=== PATIENT | male | born 1945 | race Caucasian/White ===

== ENCOUNTER 2019-12-31 11:56 | Emergency (ER) | payer BC, MEDICARE ==
[2019-12-31 12:08] VITALS: BP 157/66
--- NOTE | 2019-12-31 12:17 | ER Document Report ---
HPI - HPI Time Seen by Provider: 12/31/19 12:09 Pain Level: 3 Context: Patient is a 74-year-old male who presents emergency department with a chief complaint of possible spider bites to his right anterior thigh. Patient states that they were there about a week ago. Patient states that it has been draining purulent drainage. Denies any fevers, body aches, or chills. He has not seen a primary care provider for this issue. He is visiting from [place]. - ROS Systems Reviewed and Negative: Yes All other systems reviewed and negative - CONSTITUTIONAL Constitutional: DENIES: Fever, Chills - DERM Skin Problems: Pustule - Multiple to right anterior thigh Past Medical History - General Information source: Patient - Social History Smoking Status: Never Smoker Chew tobacco use (# tins/day): No Frequency of alcohol use: None Drug Abuse: None Family History: Reviewed & Not Pertinent - Past Medical History Cardiac Medical History: Reports: Hx Hypertension Endocrine Medical History: Reports: Hx Diabetes Mellitus Type 2 Vertical Provider Document - CONSTITUTIONAL Agree With Documented VS: Yes Exam Limitations: No Limitations General Appearance: No Apparent Distress - HEENT HEENT: Atraumatic, Normocephalic, PERRLA - CARDIOVASCULAR Cardiovascular: Regular Rate, Regular Rhythm Pulses: Normal: Radial - MUSCULOSKELETAL/EXTREMETIES Musculoskeletal/Extremeties: FROM - NEURO Level of Consciousness: Awake, Alert, Appropriate Motor/Sensory: No Motor Deficit, No Sensory Deficit - DERM Integumentary: Abscess - Multiple already drained to right anterior thigh Course - Re-evaluation Re-evalutation: 12/31/19 12:22 Patient presents with symptoms most consistent with an acute cellulitis related to his spider bite. Vitals within normal limits. Patient does not meet sepsis criteria is overall very well in appearance. Exam and history are not consistent with DVT. Patient will be started on coverage for both staph and strep. Since the abscesses have already drained, will place the patient on antibiotics. At this time will discharge with return precautions and follow-up recommendations. Verbal discharge instructions given a the bedside and opportunity for questions given. Medication warnings reviewed. Patient is in agreement with this plan and has verbalized understanding of return precautions. - Vital Signs Vital signs: Temp Pulse Resp BP Pulse Ox 97.6 F 85 18 157/66 H 96 12/31/19 12:07 12/31/19 12:07 12/31/19 12:07 12/31/19 12:07 12/31/19 12:07 Discharge - Discharge Clinical Impression: Spider bite Qualifiers: Encounter type: initial encounter Injury intent: accidental or unintentional Qualified Code(s): T63.301A - Toxic effect of unspecified spider venom, accidental (unintentional), initial encounter Cellulitis Qualifiers: Site of cellulitis: extremity Site of cellulitis of extremity: lower extremity Laterality: right Qualified Code(s): L03.115 - Cellulitis of right lower limb Condition: Stable Disposition: HOME, SELF-CARE Additional Instructions: The rash is likely due to infection of your skin. You need to take the antibiotics as prescribed. Do not stop even if the rash goes away until you have completed all the antibiotics. The area of redness was traced out here in the emergency department with a marking pen. You need to return to emergency department if the redness spreads outside of this area by more than 2 cm in any direction. You should also return if you develop fevers with temperature greater than 101, persistent vomiting, worsening pain, or have any other symptoms that are concerning to you. Prescriptions: Doxycycline Hyclate 100 mg PO BID #14 tablet.
== END 2019-12-31 12:20 | disposition home or self-care (01) ==
LOC: ER 11:56
DX: T63.301A Toxic effect of unspecified spider venom, accidental (unintentional), initial encounter (principal); L03.115 Cellulitis of right lower limb; E11.9 Type 2 diabetes mellitus without complications; I10 Essential (primary) hypertension
CPT/HCPCS: 99283

== ENCOUNTER 2020-01-06 12:45 | Emergency (ER) | payer MEDICARE ==
[2020-01-06] MEDS ORDERED: RINGERS LACTATED IV ONE (13:48)
--- NOTE | 2020-01-06 13:55 | ER Document Report ---
ED General - General Chief Complaint: Fever Stated Complaint: FEVER, WEAKNESS Time Seen by Provider: 01/06/20 13:14 - HPI Notes: Patient is a 74-year-old male presents to the emergency department for evaluation of cough, fever, weakness. He has been sick for last several days. He is actually been so weak he is been unable to get out of the bed in time to urinate. He states he was incontinent 3 times. He denies any pain. He states to me he thinks his cough is getting better. He denies any real shortness of breath. He has no nausea or vomiting. He states he is eating and drinking normally. Normal bowel movements. He denies any anosmia or difficulty with taste. He is here from [place], visiting his son who is retired from the . He was actually seen for this recently. He cannot tell me what sort of treatment was enacted. Otherwise, the patient states he has been taking his home medications as prescribed, the exception of his insulin, which he did not take today. - Related Data Allergies/Adverse Reactions: No Known Allergies Allergy (Verified 01/06/20 13:47) Past Medical History - General Information source: Patient - Social History Smoking Status: Never Smoker Frequency of alcohol use: None Drug Abuse: None Family History: Reviewed & Not Pertinent - Past Medical History Cardiac Medical History: Reports: Hx Hypertension Endocrine Medical History: Reports: Hx Diabetes Mellitus Type 2 Malignancy Medical History: Reports Hx Leukemia, Reports Hx Prostate Cancer Review of Systems - Review of Systems Constitutional: See HPI EENT: No symptoms reported Cardiovascular: No symptoms reported Respiratory: See HPI Gastrointestinal: No symptoms reported Genitourinary: See HPI Musculoskeletal: No symptoms reported Skin: No symptoms reported Neurological/Psychological: No symptoms reported Physical Exam - Vital signs Vitals: Temp Resp BP Pulse Ox 98.8 F 26 H 129/74 H 91 L 01/06/20 13:04 01/06/20 13:04 01/06/20 13:04 01/06/20 13:04 - Notes Notes: This is a very pleasant 74-year-old male, who appears his stated age, in a mild amount of distress. He is mildly tachypneic, but otherwise shows no other signs of increased work of breathing. He is pleasant and cooperative, but sometimes slow to answer questions. Vital signs reviewed, please refer to chart. Head is normocephalic, atraumatic. Pupils equal round, reactive to light. Neck is supple without meningismus. Heart is regular rate and rhythm. Lungs reveal occasional expiratory wheezes. Abdomen is soft, nontender, normoactive bowel sounds throughout. Extremities without cyanosis, clubbing. Posterior calves are nontender. Peripheral pulses are equal. Skin is warm and dry. Patient is awake, alert, neurological exam is nonfocal. Course - Re-evaluation Re-evalutation: 01/06/20 13:52 Patient presents to the emergency department for evaluation. He was initially seen to be hypoxic at 89% on room air, was placed on 2 L of oxygen. He is placed on a alarm security or surveillance monitor and IV was established. We will initiate sepsis work-up. IV fluids and blood work are ordered. Chest x-ray ordered, patient notified of the need to provide a urine sample. He is currently stable, heart rate mildly elevated at 106, blood pressure stable at 129/74. We will continue to monitor. 01/06/20 16:09 At this time, CBC has finally resulted. He has a markedly leukocytosis. He does have a history of leukemia, but per the patient has been in remission for several years. Certainly this could be sepsis related. His chest x-ray is unremarkable per radiology, despite his borderline oxygenation. He does have large blood in his urine, as well as some incontinence. I will go ahead and treat him for cystitis. IV Rocephin ordered. Will contact medicine for admiss ion. 01/06/20 16:[address] Benoit hospitalist. He asked that labs be ordered, the doctor, Garrison miller be consulted. I spoke with Dr. Berger. We discussed this patient's lab work. He states he is concerned about the possibility of blasts on a peripheral smear. He is going to try and contact pathology to see if it can be evaluated now. He will contact me with further details. 01/06/20 17:47 I have not yet heard back from oncology, but the hospitalist did contact me, he will admit the patient for further care. 01/06/20 18:01 I spoke again with the oncologist. He contacted me, notified me that the pathology report did in fact include blasts on peripheral smear. This is very concerning for an acute leukemia. Recommendation was transfer to [facility] by Dr. Jayaram. 30 I spoke directly to the patient regarding this. He unfortunately is not able to give me much more in the way of history in regards to his prior leukemia. I spoke with Erna, the patient's [id number], she was also with her , the patient's son. We talked at length about findings, our concerns, and the indication for transfer to [facility]. They voiced understanding. Patient's [id number] does state that records regarding his primary care provider and oncologist in [place] may be in fact in the patient's wallet. She recommends that we look, I did notify nursing. Otherwise, I will contact [facility] to facilitate transfer of this patient. Patient has had intermittent confusion. He is having difficulty remembering to push the call light. He has been incontinent multiple times. I have had to go back into the room, redirect him, place him back on the monitor multiple times. 01/06/20 19:[address] Donato, hematology oncology fellow on-call at [facility]. We talked at length about findings. Of course he is concerned about the COVID possibility, as [place]. We unfortunately do have a shortage of rapid tests, I am unsure as to whether or not I am able to facilitate this rapid test right now. He will discuss this case with his attending. I also kept our oncologist up-to-date in regards to the possible transfer of this patient. Patient remains mildly hyperglycemic despite IV fluids. He is eating. I did cover him with insulin. He is currently stable. 01/06/20 20:04 I was contacted by the offensive coordinator Alok from [facility], at 2000 hrs. He reports to me that the patient will be accepted by Dr. Tania Ledesma, on the hospitalist COVID-19 team. He does, however, remark that the board will have to approve this patient's transfer. He will be in contact. 01/06/20 21:47 I was notified by ED elementary principal that the patient does not fact have a bed assignment. Patient will be transferred to [facility]. 01/06/20 21:48 01/06/20 21:55 We were able to locate patient's healthcare providers back in [place]. Patient sees [facility] in [facility], PRABHA Geller, amaya lafleur and oncologist at [facility] [place], Wayne Beard MD, a radiation oncologist. 01/06/20 22:43 Patient remains a stable, awaiting transport to [facility]. - Vital Signs Vital signs: Temp Pulse Resp BP Pulse Ox 99.0 F 26 H 156/79 H 92 01/06/20 21:01 01/06/20 21:01 01/06/20 21:01 01/06/20 21:01 - Laboratory Result Diagrams: 01/06/20 13:10 01/06/20 13:10 Laboratory results interpreted by me: 01/06/20 01/06/20 01/06/20 13:10 13:10 13:10 WBC 50.5 H* RDW 14.9 H Seg Neuts % (Manual) 13 L Band Neutrophils % 1 L Lymphocytes % (Manual) 79 H Monocytes % (Manual) 1 L Immature Leukocytes % 6 H Abs Lymphs (Manual) 39.9 H VBG pH 7.43 H VBG pCO2 29.3 L VBG HCO3 19.0 L Sodium 129.1 L Chloride 94 L Carbon Dioxide 21 L BUN 21 H Est GFR (MDRD) Non-Af 58 L Glucose 359 H POC Glucose Lactic Acid Direct Bilirubin 0.5 H Urine Glucose (UA) Urine Blood 01/06/20 01/06/20 01/06/20 13:10 13:55 17:17 WBC RDW Seg Neuts % (Manual) Band Neutrophils % Lymphocytes % (Manual) Monocytes % (Manual) Immature Leukocytes % Abs Lymphs (Manual) VBG pH VBG pCO2 VBG HCO3 Sodium Chloride Carbon Dioxide BUN Est GFR (MDRD) Non-Af Glucose POC Glucose Lactic Acid 2.4 H 2.6 H Direct Bilirubin Urine Glucose (UA) >=500 H Urine Blood LARGE H 01/06/20 01/06/20 18:46 19:20 WBC RDW Seg Neuts % (Manual) Band Neutrophils % Lymphocytes % (Manual) Monocytes % (Manual) Immature Leukocytes % Abs Lymphs (Manual) VBG pH VBG pCO2 VBG HCO3 Sodium Chloride Carbon Dioxide BUN Est GFR (MDRD) Non-Af Glucose POC Glucose 258 H Lactic Acid 2.4 H Direct Bilirubin Urine Glucose (UA) Urine Blood - Diagnostic Test Radiology reviewed: Reports reviewed Radiology results interpreted by me: 01/06/20 17:47 Chest X-Ray 01/06/20 13:48 IMPRESSION: NO ACUTE RADIOGRAPHIC FINDING IN THE CHEST. - EKG Interpretation by Me Additional EKG results interpreted by me: 01/06/20 13:53 Sinus mechanism with a rate of 94 bpm. Normal axis. Borderline prolonged QT interval. No acute ST changes concerning for ischemia or infarction. No old studies available for comparison. 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 Tania Ledesma
[2020-01-06 14:25] LABS: APPEARANCE,URINE CLEAR; BILIRUBIN,URINE NEGATIVE (NEGATIVE); COLOR,URINE YELLOW; GLUCOSE, URINE >=500 mg/dL (NEGATIVE); KETONES,URINE NEGATIVE (NEGATIVE); PROTEIN,URINE NEGATIVE (NEGATIVE); URINE SPECIFIC GRAVITY 1.026; UROBILINOGEN,URINE NEGATIVE mg/dL (<2.0)
--- NOTE | 2020-01-06 15:03 | RADIOLOGY REPORT (SQ) ---
EXAM DESCRIPTION: CHEST SINGLE VIEW IMAGES COMPLETED DATE/TIME: 01/06/2020 2:32 pm REASON FOR STUDY: Cough, hypoxia COMPARISON: None. EXAM PARAMETERS: NUMBER OF VIEWS: One view. TECHNIQUE: Single frontal radiographic view of the chest acquired. RADIATION DOSE: NA LIMITATIONS: None. FINDINGS: LUNGS AND PLEURA: No opacities, masses or pneumothorax. No pleural effusion. MEDIASTINUM AND HILAR STRUCTURES: No masses. Contour normal. HEART AND VASCULAR STRUCTURES: Heart normal in size. Normal vasculature. BONES: No acute findings. HARDWARE: None in the chest. OTHER: No other significant finding. IMPRESSION: NO ACUTE RADIOGRAPHIC FINDING IN THE CHEST. TECHNICAL DOCUMENTATION: JOB ID: [id number] 2010 [employer]- All Rights Reserved Reading location - IP/workstation name: [email or web address]
[2020-01-06 15:09] LABS: VENOUS BLOOD BASE EXCESS -3.7 mmol/L; VENOUS BLOOD PCO2 29.3 mmHg (35-63); VENOUS BLOOD PH 7.43 (7.30-7.42)
[2020-01-06 15:15] LABS: INTERNATIONAL RATION (INR) 1.04; PROTHROMBIN TIME 13.8 SEC (11.4-15.4)
[2020-01-06 15:18] LABS: HEMATOCRIT 47.2 % (37.9-51.0); HEMOGLOBIN 16.2 g/dL (13.5-17.0); MEAN CORPUSCULAR HEMOGLOBIN 29.7 pg (27.0-33.4); MEAN CORPUSCULAR HGB CONC 34.4 g/dL (32.0-36.0); MEAN CORPUSCULAR VOLUME 86 fl (80-97); PLATELET COUNT 190 10^3/uL (150-450); RED BLOOD COUNT 5.47 10^6/uL (4.35-5.55); RED CELL DISTRIBUTION WIDTH 14.9 % (11.5-14.0)
[2020-01-06 15:22] LABS: ALKALINE PHOSPHATASE 41 U/L (38-126); ANION GAP 14 (5-19); ASPARTATE AMINO TRANSFERASE 22 U/L (17-59); BILIRUBIN,DIRECT 0.5 mg/dL (0.0-0.4); BILIRUBIN,TOTAL 1.2 mg/dL (0.2-1.3); BLOOD UREA NITROGEN 21 mg/dL (7-20); CALCIUM 9.4 mg/dL (8.4-10.2); CARBON DIOXIDE 21 mmol/L (22-30); CHLORIDE 94 mmol/L (98-107); GLUCOSE 359 mg/dL (75-110); POTASSIUM 4.3 mmol/L (3.6-5.0); TOTAL PROTEIN 6.3 g/dL (6.3-8.2)
[2020-01-06 15:56] LABS: WHITE BLOOD COUNT 50.5 10^3/uL (4.0-10.5)
[2020-01-06 15:59] LABS: BASOPHILS % (MANUAL) 0 % (0-2); SEGMENTED NEUTROPHILS % (MAN) 13 % (42-78); TOTAL CELLS COUNTED 100
[2020-01-06 16:01] LABS: ANISOCYTOSIS SLIGHT; PLATELET COMMENT ADEQUATE; POLYCHROMASIA SLIGHT; SMUDGE CELLS PRESENT
[2020-01-06] MEDS ORDERED: CEFTRIAXONE 1 GM/D5W RTU 1 GM/50 ML RTUPB IV ONE (16:08)
[2020-01-06 16:52] LABS: PHOSPHORUS 3.7 mg/dL (2.5-4.5)
--- NOTE | 2020-01-06 18:00 | PDOC H&P ---
History of Present Illness Patient complains of: confusion, weakness, fever, cough History of Present Illness: FARIDEH OCHOA is a 74 year old male with h/o Leukemia (could not specify) reported to have been in remission, prostate cancer s/p radiation 2 years ago, diabetes mellitus type 2, hypertension, who presents to the hospital for evaluation of fever, confusion and incontinence. Patient is based in [place]. He just traveled into town about a week ago. He has been experiencing a cough as well as a fever of 101.4F which was measured by his [id number] at home. His was also noted to be febrile. He had been seen in the ER a few days ago for evaluation of an area of redness secondary to a spider bite. He was sent home on doxycycline at the time. Started having fevers at home and became weak having difficulty standing up this morning. Also had an episode of incontinence. Denies saddle anesthesia. His white cell count was noted to be over 50,000 in the ER. He was also noted to be hypoxic at 88% in the ER. She obtained from patient, patient's and patient's [id number] Erna. Past Medical History Cardiac Medical History: Reports: Hypertension Endocrine Medical History: Reports: Diabetes Mellitus Type 2 Malignancy Medical History: Reports: Leukemia Past Surgical History Past Surgical History: Reports: Other Social History Smoking Status: Never Smoker Frequency of Alcohol Use: None Hx Recreational Drug Use: No - Advance Directive Resuscitation Status: Full Code Family History Family History: DM, Hypertension Parental Family History Reviewed: Yes Children Family History Reviewed: Unknown Sibling(s) Family History Reviewed.: Unknown Medication/Allergy Home Medications: Doxycycline Hyclate 100 mg PO BID #14 tablet. 12/31/19 Allergies/Adverse Reactions: No Known Allergies Allergy (Verified 01/06/20 13:47) Review of Systems Constitutional: PRESENT: fatigue, fever(s) Eyes: ABSENT: visual disturbances Ears: ABSENT: hearing changes Nose, Mouth, and Throat: ABSENT: headache(s) Cardiovascular: ABSENT: chest pain Respiratory: PRESENT: cough. ABSENT: dyspnea Gastrointestinal: ABSENT: abdominal pain, nausea, vomiting Genitourinary: PRESENT: other - incontinence. ABSENT: dysuria Integumentary: PRESENT: diaphoresis Neurological: PRESENT: confusion. ABSENT: dizziness Psychiatric: ABSENT: depression Physical Exam Vital Signs: Temp Pulse Resp BP Pulse Ox 98.8 F 26 H 129/74 H 96 01/06/20 13:04 01/06/20 13:04 01/06/20 13:04 01/06/20 14:04 Intake & Output 01/05/20 01/06/20 01/07/20 06:59 06:59 06:59 Output Total 500 Balance -500 Weight 115.666 kg General appearance: PRESENT: no acute distress, cooperative Head exam: PRESENT: normocephalic Eye exam: ABSENT: scleral icterus Neck exam: ABSENT: JVD, meningismus, tracheal deviation Respiratory exam: PRESENT: symmetrical, unlabored, wheezes. ABSENT: accessory muscle use, retraction, tachypnea Cardiovascular exam: PRESENT: RRR, +S1, +S2. ABSENT: tachycardia GI/Abdominal exam: PRESENT: soft. ABSENT: rebound, rigid, tenderness Extremities exam: ABSENT: calf tenderness, pedal edema Neurological exam: PRESENT: alert, awake, oriented to person, oriented to place, oriented to time, other - memory lapses, forgetful Psychiatric exam: PRESENT: anxious. ABSENT: agitated Focused psych exam: ABSENT: internal stimuli, restlessness Results Laboratory Results: 01/06/20 13:10 01/06/20 13:10 01/06/20 01/06/20 01/06/20 13:10 13:10 13:10 WBC 50.5 H* RBC 5.47 Hgb 16.2 Hct 47.2 MCV 86 MCH 29.7 MCHC 34.4 RDW 14.9 H Plt Count 190 Seg Neutrophils % Not Reportable VBG pH 7.43 H VBG pCO2 29.3 L VBG HCO3 19.0 L VBG Base Excess -3.7 Sodium 129.1 L Potassium 4.3 Chloride 94 L Carbon Dioxide 21 L Anion Gap 14 BUN 21 H Creatinine 1.22 Est GFR ( Amer) > 60 Glucose 359 H Lactic Acid Uric Acid Calcium 9.4 Phosphorus Total Bilirubin 1.2 AST 22 Alkaline Phosphatase 41 Total Protein 6.3 Albumin 4.0 Urine Color Urine Appearance Urine pH Ur Specific Colo Urine Protein Urine Glucose (UA) Urine Ketones Urine Blood Urine RBC (Auto) 01/06/20 01/06/20 01/06/20 13:10 13:10 13:55 WBC RBC Hgb Hct MCV MCH MCHC RDW Plt Count Seg Neutrophils % VBG pH VBG pCO2 VBG HCO3 VBG Base Excess Sodium Potassium Chloride Carbon Dioxide Anion Gap BUN Creatinine Est GFR ( Amer) Glucose Lactic Acid 2.4 H Uric Acid 6.0 Calcium Phosphorus 3.7 Total Bilirubin AST Alkaline Phosphatase Total Protein Albumin Urine Color YELLOW Urine Appearance CLEAR Urine pH 5.0 Ur Specific Colo 1.026 Urine Protein NEGATIVE Urine Glucose (UA) >=500 H Urine Ketones NEGATIVE Urine Blood LARGE H Urine RBC (Auto) >182 01/06/20 13:10 Troponin I 0.021 Impressions: Chest X-Ray 01/06/20 13:48 IMPRESSION: NO ACUTE RADIOGRAPHIC FINDING IN THE CHEST. 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 Berger has contacted pathologist who reviewed slides notes presence of lymphoblasts. I have discussed with Dr. Berger who recommends that patient be transferred to tertiary facility given presence of blast as this becomes concerning for ALL (2) Fever Is this a current diagnosis for this admission?: Yes Plan: Patient's daughter in law Erna, informs me that they have all had fevers in the house and body aches with cough Possibly a viral illness. Check for COVID-19 and influenza Chest x-ray is negative for any pneumonia. (3) Hypoxia Is this a current diagnosis for this admission?: Yes Plan: 88% on room air upon presentation of denies history of COPD or asthma. In light of patient's likely malignancy, it is important to rule out PE so we will get a CTA of the chest. (4) Hyperglycemia due to type 2 diabetes mellitus Qualifiers: Diabetes mellitus custodial insulin use: with emt intermediate use Qualified Code(s): E11.65 - Type 2 diabetes mellitus with hyperglycemia; Z79.4 - terminal worker (current) use of insulin Is this a current diagnosis for this admission?: Yes Plan: Resume home regimen 70/30 65 units twice daily. Hold metformin. Accu-Cheks and sliding scale insulin. (5) Acute metabolic encephalopathy Is this a current diagnosis for this admission?: Yes Plan: Likely related to patient's acute illness and leukemia (6) Cellulitis Qualifiers: Site of cellulitis: extremity Site of cellulitis of extremity: lower extremity Laterality: right Qualified Code(s): L03.115 - Cellulitis of right lower limb Is this a current diagnosis for this admission?: Yes Plan: Patient was started on treatment for suspected spider bite cellulitis of his right thigh and has been taking doxycycline which can be continued. The area does not look significantly infected at this point a small patch of erythema is noted around it. - Plan Summary Summary: Given patient is being transferred, hospitalist team will sign off. - Time Time Spent with patient: 35 or more minutes Anticipated Discharge Disposition: Tertiary Anticipated Discharge Timeframe: within 24 hours
[2020-01-06 18:03] LABS: IMMATURE MONONUCLEAR% (MANUAL) 6 % (0)
--- NOTE | 2020-01-06 18:14 | EKG REPORT ---
SEVERITY:- BORDERLINE ECG - SINUS RHYTHM BORDERLINE PROLONGED QT INTERVAL : Confirmed by: Randy Curry MD 06-Jan-2020 18:13:15
--- NOTE | 2020-01-06 18:18 | RADIOLOGY REPORT (SQ) ---
EXAM DESCRIPTION: CTA CHEST IMAGES COMPLETED DATE/TIME: 01/06/2020 5:59 pm REASON FOR STUDY: hypoxia, eval for PE COMPARISON: None. TECHNIQUE: CT scan of the chest performed using helical scanning technique with dynamic intravenous contrast injection. Images reviewed with lung, soft tissue and bone windows. Reconstructed coronal and sagittal MPR images reviewed. Additional 3 dimensional post-processing performed to develop Maximal Intensity Projection images (FL P). All images stored on PACS. All CT scanners at this facility use dose modulation, iterative reconstruction, and/or weight based d osing when appropriate to reduce radiation dose to as low as reasonably achievable (ALARA). [facility]: Dose Right [facility]: CareDose [facility]: Dose Right [facility]: Teradose 4D [facility]: BugHerd CONTRAST TYPE AND DOSE: contrast/concentration: Isovue 350.00 mmol/ml; Total Contrast Delivered: 75. 0 ml; Total Saline Delivered: 75.0 ml Contrast bolus adequate for pulmonary arteries and aorta. RENAL FUNCTION: BUN 21 creatinine 1.22 RADIATION DOSE: CT Rad equipment meets quality standard of care and radiation dose reduction techniq ues were employed. CTDIvol: 9.9 - 36.4 mGy. DLP: 1262 mGy-cm. . LIMITATIONS: Slightly suboptimal opacification of the pulmonary arteries. FINDINGS: LUNGS AND PLEURA: There are small peripheral areas of ground-glass opacification bilateral ly. There is hazy ground-glass opacification in the lower lobes more generally. There is an [address] eural-based nodule in the left lower lobe. AORTA AND GREAT VESSELS: No aneurysm. No dissection. HEART: No pericardial effusion. Moderate to marked coronary artery calcifications. PULMONARY ARTERIES: No major or central pulmonary emboli. HILAR AND MEDIASTINAL STRUCTURES: Mild mediastinal adenopathy. HARDWARE: None in the chest. UPPER ABDOMEN: No significant findings. Limited exam. THYROID AND OTHER SOFT TISSUES: No masses. No adenopathy. BONES: No acute or significant finding. 3D MIPS: Confirm above findings. OTHER: No other significant finding. IMPRESSION: 1. No central or major pulmonary emboli. Study is slightly limited. No aortic aneurys m or dissection. 2. There is hazy ground-glass opacification bilaterally with more prominent small areas of periphera l ground-glass opacification. Cannot exclude an atypical infectious/ inflammatory process. Cannot e xclude chronic interstitial changes. Cannot exclude mild interstitial edema. 3. 8 mm pleural-based nodule in the left lower lobe. 4. Mild mediastinal adenopathy. COMMENT: Quality ID # [id number]: Final reports with documentation of one or more dose reduction techniques (e.g., Automated exposure control, adjustment of the mA and/or kV according to patient size, use of iterative reconstruction technique) TECHNICAL DOCUMENTATION: JOB ID: [id number] 2010 [employer]- All Rights Reserved Reading location - IP/workstation name: [email or web address]
[2020-01-06] MEDS ORDERED: AZITHROMYCIN INJ 500 MG VIAL IV ONE (18:21)
--- NOTE | 2020-01-06 18:25 | PDOC CONSULTATION ---
Consultation Consult Date: 01/06/20 Attending physician:: LOLITA HAUSER Provider Consulted: RANJANA ALVARADO Consult reason:: Leukocytosis, fevers, chills History of Present Illness Admission Date/PCP: ED consultation Patient complains of: Fevers, weakness History of Present Illness: FARIDEH OCHOA is a 74 year old male w/ previous h/o of prostate cancer s/p XRT 2 yrs ago, visiting his son from [place], [place], who has felt poorly x 2-3 weeks now, presents w/ fevers, chills, cough, found on CBC to have wt ct 50K, hb 16, plt 160, 80% lymphocytes. He has not had wt loss or b symptoms. I reviewed the peripheral smear w/ the pathologist and there are blasts noted on smear. CMP is unremarkable and pt/inr is normal. Past Medical History Cardiac Medical History: Reports: Hypertension Endocrine Medical History: Reports: Diabetes Mellitus Type 2 Malignancy Medical History: Reports: Other - Prostate cancer Past Surgical History Past Surgical History: Reports: Other - prostate bx Social History Information Source: Patient Smoking Status: Never Smoker Frequency of Alcohol Use: None Hx Recreational Drug Use: No - Advance Directive Resuscitation Status: Full Code Family History Family History: DM, Hypertension Parental Family History Reviewed: Yes Children Family History Reviewed: Yes Sibling(s) Family History Reviewed.: Yes Medication/Allergy Home Medications: Doxycycline Hyclate 100 mg PO BID #14 tablet. 12/31/19 Allergies/Adverse Reactions: No Known Allergies Allergy (Verified 01/06/20 13:47) Review of Systems Constitutional: PRESENT: anorexia, chills, fatigue Cardiovascular: ABSENT: chest pain, dyspnea on exertion, edema, orthropnea, palpitations Gastrointestinal: PRESENT: as per HPI Genitourinary: ABSENT: dysuria, hematuria Neurological: ABSENT: abnormal gait, abnormal speech, confusion, dizziness, focal weakness, syncope Endocrine: ABSENT: cold intolerance, heat intolerance, polydipsia, polyuria Physical Exam Vital Signs: Temp Pulse Resp BP Pulse Ox 98.8 F 18 166/74 H 91 L 01/06/20 13:04 01/06/20 17:11 01/06/20 17:10 01/06/20 17:11 Intake & Output 01/05/20 01/06/20 01/07/20 06:59 06:59 06:59 Output Total 500 Balance -500 Weight 115.666 kg General appearance: PRESENT: no acute distress, well-developed, well-nourished Head exam: PRESENT: atraumatic, normocephalic Eye exam: PRESENT: conjunctiva pink, EOMI, PERRLA. ABSENT: scleral icterus Ear exam: PRESENT: normal external ear exam Mouth exam: PRESENT: moist, tongue midline Neck exam: ABSENT: carotid bruit, JVD, lymphadenopathy, thyromegaly Respiratory exam: PRESENT: clear to auscultation koffi. ABSENT: rales, rhonchi, wheezes Cardiovascular exam: PRESENT: RRR. ABSENT: diastolic murmur, rubs, systolic murmur Pulses: PRESENT: normal dorsalis pedis pul Vascular exam: PRESENT: normal capillary refill GI/Abdominal exam: PRESENT: normal bowel sounds, soft. ABSENT: distended, guarding, mass, organolmegaly, rebound, tenderness Rectal exam: PRESENT: deferred Extremities exam: PRESENT: full ROM. ABSENT: calf tenderness, clubbing, pedal edema Neurological exam: PRESENT: alert, awake, oriented to person, oriented to place, oriented to time, oriented to situation, CN II-XII grossly intact. ABSENT: motor sensory deficit Psychiatric exam: PRESENT: appropriate affect, normal mood. ABSENT: homicidal ideation, suicidal ideation Skin exam: PRESENT: dry, intact, warm. ABSENT: cyanosis, rash Results Laboratory Results: 01/06/20 13:10 01/06/20 13:10 01/06/20 01/06/20 01/06/20 13:10 13:10 13:10 WBC 50.5 H* RBC 5.47 Hgb 16.2 Hct 47.2 MCV 86 MCH 29.7 MCHC 34.4 RDW 14.9 H Plt Count 190 Seg Neutrophils % Not Reportable VBG pH 7.43 H VBG pCO2 29.3 L VBG HCO3 19.0 L VBG Base Excess -3.7 Sodium 129.1 L Potassium 4.3 Chloride 94 L Carbon Dioxide 21 L Anion Gap 14 BUN 21 H Creatinine 1.22 Est GFR ( Amer) > 60 Glucose 359 H Lactic Acid Uric Acid Calcium 9.4 Phosphorus Total Bilirubin 1.2 AST 22 Alkaline Phosphatase 41 Total Protein 6.3 Albumin 4.0 Urine Color Urine Appearance Urine pH Ur Specific [place] Urine Protein Urine Glucose (UA) Urine Ketones Urine Blood Urine RBC (Auto) 09/30/20 09/30/20 09/30/20 13:10 13:10 13:55 WBC RBC Hgb Hct MCV MCH MCHC RDW Plt Count Seg Neutrophils % VBG pH VBG pCO2 VBG HCO3 VBG Base Excess Sodium Potassium Chloride Carbon Dioxide Anion Gap BUN Creatinine Est GFR ( Amer) Glucose Lactic Acid 2.4 H Uric Acid 6.0 Calcium Phosphorus 3.7 Total Bilirubin AST Alkaline Phosphatase Total Protein Albumin Urine Color YELLOW Urine Appearance CLEAR Urine pH 5.0 Ur Specific [place] 1.026 Urine Protein NEGATIVE Urine Glucose (UA) >=500 H Urine Ketones NEGATIVE Urine Blood LARGE H Urine RBC (Auto) >182 01/06/20 17:17 WBC RBC Hgb Hct MCV MCH MCHC RDW Plt Count Seg Neutrophils % VBG pH VBG pCO2 VBG HCO3 VBG Base Excess Sodium Potassium Chloride Carbon Dioxide Anion Gap BUN Creatinine Est GFR ( Amer) Glucose Lactic Acid 2.6 H Uric Acid Calcium Phosphorus Total Bilirubin AST Alkaline Phosphatase Total Protein Albumin Urine Color Urine Appearance Urine pH Ur Specific [place] Urine Protein Urine Glucose (UA) Urine Ketones Urine Blood Urine RBC (Auto) 01/06/20 13:10 Troponin I 0.021 Impressions: Chest X-Ray 01/06/20 13:48 IMPRESSION: NO ACUTE RADIOGRAPHIC FINDING IN THE CHEST. Assessment & Plan - Diagnosis (1) Acute leukemia not having achieved remission Is this a current diagnosis for this admission?: Yes Plan: Appears to be an acute leukemia with blasts noted on smear. Would recommend to brad omss to [facility] for further care. We cannot treat acute leukemia here at [facility] as we are not able to give induction chemotherapy. We can help with care post hospitalization or after evaluation by the [facility] leukemia program that a less aggressive approach is recommended. Pt does not have coagulopathy and is stable from a hematologic standpoint for transfer. - Time Time Spent: Greater than 70 Minutes - Inpatient Certification Based on my medical assessment, after consideration of the patient's comorbidities, presenting symptoms, or acuity I expect that the services needed warrant INPATIENT care.: Yes I certify that my determination is in accordance with my understanding of Medicare's requirements for reasonable and necessary INPATIENT services [42 CFR 412.3e].: Yes Medical Necessity: Risk of Complication if Not Cared For in Hospital
[2020-01-06] MEDS ORDERED: INSULIN REG, HUMAN 100 UNIT/ML 3 ML VIAL (PYX) IV ONE (18:55)
[2020-01-06 19:52] LABS: BAND NEUTROPHILS % (MANUAL) 1 % (3-5); LYMPHOCYTES % (MANUAL) 79 % (13-45)
[2020-01-06 19:53] LABS: ABSOLUTE LYMPHOCYTES# (MANUAL) 39.9 10^3/uL (0.5-4.7); EOSINOPHILS % (MANUAL) 0 % (0-6); MONOCYTES % (MANUAL) 1 % (3-13)
[2020-01-06 19:54] LABS: ABSOLUTE MONOCYTES # (MANUAL) 0.5 10^3/uL (0.1-1.4)
[2020-01-06] MEDS ORDERED: LORAZEPAM INJ 2 MG/1 ML VIAL IV ONE (21:26)
[2020-01-06 22:47] VITALS: BP 164/88
--- NOTE | 2020-01-06 23:40 | ER Document Report ---
Doctor's Note Notes: 01/06/20 23:40 Received patient in signout. Transport has arrived for patient. I went in to assess him, he is in no acute distress, he voices no complaints. He is stable at this time for transfer.
[2020-01-07 13:34] LABS: PATH REVIEW PATHOLOGIST REVIEWED
== END 2020-01-06 23:50 | disposition short-term general hospital (02) ==
LOC: ER 12:45
DX: U07.1 COVID-19 (principal); R50.9 Fever, unspecified; R05 Cough; C91.12 Chronic lymphocytic leukemia of B-cell type in relapse; R31.9 Hematuria, unspecified; R53.1 Weakness; Z20.828 Contact with and (suspected) exposure to other viral communicable diseases; I10 Essential (primary) hypertension; E11.9 Type 2 diabetes mellitus without complications; Z79.4 Long term (current) use of insulin; Z85.46 Personal history of malignant neoplasm of prostate
CPT/HCPCS: 93005; 99285; 96361; 96375; 96365; 96367; 36415; 87040; 87086; 82962; 83605; 84100; 84550; 85025; 85610; 85730; 80053; 81001; 84484; 82803; 71045; 71275; 93010; U0003; J2060; A9270; J7120; J0456; J0696; C9803; 87635; J1815

== ENCOUNTER 2020-01-14 19:44 | Inpatient (IN) | payer MEDICARE ==
--- NOTE | 2020-01-14 21:16 | ER Document Report ---
ED General - General Chief Complaint: Shortness Of Breath Stated Complaint: SHORTNES OF BREATH Time Seen by Provider: 01/14/20 20:05 - HPI Notes: Patient is a 74-year-old male with a history of DM II, hypertension, leukemia and prostate cancer who presents for weakness. Patient was seen here in the ED on 01/06/2020 and was found to be COVID positive and in a blast crisis. Patient was transferred to [facility] and was discharged last week. Patient states he has been weak and fatigued since returning home and his [id number] became worried about him and told him to come in. Patient denies chest pain, shortness of breath, cough, fever, nausea, vomiting, abdominal pain, diarrhea, and dysuria. Patient denies tobacco, alcohol and recreational drug use. He denies any surgical history. Patient is a poor historian and has a hard time recalling events. - Related Data Allergies/Adverse Reactions: No Known Allergies Allergy (Verified 01/06/20 13:47) Past Medical History - General Information source: Patient - Social History Smoking Status: Never Smoker Chew tobacco use (# tins/day): No Frequency of alcohol use: None Drug Abuse: None Family History: Reviewed & Not Pertinent Patient has homicidal ideation: No - Past Medical History Cardiac Medical History: Reports: Hx Hypertension Endocrine Medical History: Reports: Hx Diabetes Mellitus Type 2 Malignancy Medical History: Reports Hx Leukemia, Reports Hx Prostate Cancer Past Surgical History: Reports: Other - prostate bx Review of Systems - Review of Systems Constitutional: See HPI EENT: No symptoms reported Cardiovascular: No symptoms reported Respiratory: No symptoms reported Gastrointestinal: No symptoms reported Genitourinary: No symptoms reported Male Genitourinary: No symptoms reported Musculoskeletal: No symptoms reported Skin: No symptoms reported Hematologic/Lymphatic: No symptoms reported Neurological/Psychological: No symptoms reported Physical Exam - Vital signs Vitals: Pulse Ox 93 01/14/20 19:54 - Notes Notes: PHYSICAL EXAMINATION: VITALS: Vitals reviewed and patient mildly tachycardic and febrile. GENERAL: Diaphoretic, overweight male with increased work of breathing. HEAD: Atraumatic, normocephalic. EYES: Pupils equal round and reactive to light, extraocular movements intact, sclera anicteric, conjunctiva are normal. ENT: Nares patent, oropharynx clear without exudates. Moist mucous membranes. NECK: Normal range of motion, supple without lymphadenopathy. LUNGS: Breath sounds clear to auscultation bilaterally and equal. Increased work of breathing. No wheezes, rales, or rhonchi. HEART: Tachycardic with regular rhythm without murmurs. ABDOMEN: Soft, nontender, normoactive bowel sounds. No guarding, no rebound. No masses appreciated. EXTREMITIES: Normal range of motion, no pitting or edema. No cyanosis. NEUROLOGICAL: No focal neurological deficits. Moves all extremities spontaneously and on command. PSYCH: Normal mood, normal affect. SKIN: Warm, Dry, normal turgor, no rashes or lesions noted. Course - Re-evaluation Re-evalutation: Patient is 74-year-old male with a history of DM II, HTN, and leukemia who presents for weakness and fatigue. Patient was recently seen here in the ED and transferred to [facility] for COVID positive and blast crisis. Patient is mildly febrile, tachycardic with O2 sats in the low 90s on room air. All other vital signs are within normal limits. On exam, patient struggles to sit upright in bed on his own and has increased work of breathing with any exertion and is diaphoretic. Lungs are clear to auscultation bilaterally. WBC elevated at 58.1 with 2% immature leukocytes. WBC on 01/06/2020 was 50.5. Calculated ANC of 9296 which shows no neutropenia. VBG shows mildly elevated pH at 7.48 with low pCO2 of 27.8. Na low at 127.2 but was low at 129 on 01/06/2020. 01/14/20 22:14 Chest XR shows mild progressive airspace disease left lung base retrocardiac. Based on his recent hospitalization, cefepime IV and vancomycin IV ordered. 01/14/20 23:[address] Hall, on-call for oncology, concerning this patient. She recommends calling [facility] where the patient was admitted to find out the treatment history and plan. She believes patient will have to be ultimately transferred as they only offer palliative treatment here and not treatment for acute leukemia. She states she would gladly consult on the patient if their treatment can be carried out at out facility. I will proceed with contacting [facility]. 01/15/20 00:44 I consulted Hematology/Oncology at [facility] and spoke with Dr. Justin Hoffman concerning this patient. Looking at prior records, he states the patient was diagnosed with mature B-cell CLL. He is less concerned that his elevated WBC is due to his leukemia but it is most likely related to being COVID+. He states that if the patient can be managed here safely he recommends going that route initially unless further treatment is needed. I will call Dr. Hall once more and update her. 01/15/20 00:[address] Hall and updated her on my conversation with heme/onc at [facility]. Due to his CLL diagnosis, she believes the patient can be safely managed here and will gladly consult on the patient. 01/15/20 03:[address] Baer concerning the patient he will accept the patient for worsening COVID pneumonia with O2 requirement and CLL. Patient will be admitted inpatient to the [facility] COVID floor. - Vital Signs Vital signs: Temp Pulse Resp BP Pulse Ox 98.7 F 101 H 26 H 162/91 H 93 01/15/20 04:01 01/14/20 20:00 01/15/20 03:01 01/15/20 04:01 01/15/20 04:01 - Laboratory Result Diagrams: 01/14/20 21:09 01/14/20 21:09 Laboratory results interpreted by me: 01/14/20 01/14/20 01/14/20 21:05 21:09 21:09 WBC 58.1 H* RDW 14.9 H Seg Neuts % (Manual) 15 L Band Neutrophils % 1 L Lymphocytes % (Manual) 72 H Immature Leukocytes % 2 H Abs Neuts (Manual) 9.3 H Abs Lymphs (Manual) 44.7 H Abs Monocytes (Manual) 2.9 H VBG pH VBG pCO2 Sodium 127.2 L Chloride 94 L Carbon Dioxide 21 L Glucose 301 H POC Glucose 286 H Total Bilirubin 1.4 H 01/14/20 21:09 WBC RDW Seg Neuts % (Manual) Band Neutrophils % Lymphocytes % (Manual) Immature Leukocytes % Abs Neuts (Manual) Abs Lymphs (Manual) Abs Monocytes (Manual) VBG pH 7.48 H VBG pCO2 27.8 L Sodium Chloride Carbon Dioxide Glucose POC Glucose Total Bilirubin - Diagnostic Test Radiology reviewed: Image reviewed, Reports reviewed Radiology results interpreted by me: Chest X-Ray 01/14/20 20:50 IMPRESSION: Mild progressive airspace disease left lung base retrocardiac. - EKG Interpretation by Me Additional EKG results interpreted by me: Sinus rhythm with a rate of 92. QTc 471. Normal axis. No T wave inversions or ST segment changes in consecutive leads. Discharge - Discharge Clinical Impression: COVID-19, Hypoxia Pneumonia Qualifiers: Pneumonia type: due to unspecified organism Laterality: left Lung location: lower lobe of lung Qualified Code(s): J18.9 - Pneumonia, unspecified organism Chronic lymphocytic leukemia (CLL), B-cell Qualifiers: Leukemia Active/Remission status: without remission Qualified Code(s): C91.10 - Chronic lymphocytic leukemia of B-cell type not having achieved remission Condition: Stable Disposition: ADMITTED INPATIENT Admitting Provider: Buffy (Hospitalist) Unit Admitted: [facility]
[2020-01-14 21:25] LABS: VENOUS BLOOD BASE EXCESS -1.6 mmol/L; VENOUS BLOOD HCO3 20.4 mmol/L (20-32); VENOUS BLOOD PCO2 27.8 mmHg (35-63); VENOUS BLOOD PH 7.48 (7.30-7.42)
[2020-01-14 21:33] LABS: HEMOGLOBIN 14.5 g/dL (13.5-17.0); MEAN CORPUSCULAR HEMOGLOBIN 28.3 pg (27.0-33.4); MEAN CORPUSCULAR HGB CONC 32.9 g/dL (32.0-36.0); MEAN CORPUSCULAR VOLUME 86 fl (80-97); PLATELET COUNT 301 10^3/uL (150-450); RED BLOOD COUNT 5.12 10^6/uL (4.35-5.55); RED CELL DISTRIBUTION WIDTH 14.9 % (11.5-14.0)
[2020-01-14 21:40] LABS: ALBUMIN 3.7 g/dL (3.5-5.0); ALKALINE PHOSPHATASE 46 U/L (38-126); ANION GAP 12 (5-19); ASPARTATE AMINO TRANSFERASE 17 U/L (17-59); BILIRUBIN,DIRECT 0.3 mg/dL (0.0-0.4); BILIRUBIN,TOTAL 1.4 mg/dL (0.2-1.3); BLOOD UREA NITROGEN 18 mg/dL (7-20); CALCIUM 9.1 mg/dL (8.4-10.2); CARBON DIOXIDE 21 mmol/L (22-30); CHLORIDE 94 mmol/L (98-107); GLUCOSE 301 mg/dL (75-110); POTASSIUM 4.7 mmol/L (3.6-5.0); TOTAL PROTEIN 6.3 g/dL (6.3-8.2)
[2020-01-14 21:41] LABS: INTERNATIONAL RATION (INR) 1.11; PROTHROMBIN TIME 14.5 SEC (11.4-15.4)
--- NOTE | 2020-01-14 21:59 | RADIOLOGY REPORT (SQ) ---
CLINICAL INDICATION: shortness of breath. TECHNIQUE: A single portable AP view was obtained of the chest at 2116 hours. COMPARISON: January 06, 2020. FINDINGS: The cardiomediastinal silhouette is enlarged but stable. The lungs are of lower volume. Mild progressive fluffy airspace disease left lung base. No evidence of effusion or pneumothorax. The visualized bones are unremarkable. IMPRESSION: Mild progressive airspace disease left lung base retrocardiac.
[2020-01-14 22:12] LABS: WHITE BLOOD COUNT 58.1 10^3/uL (4.0-10.5)
[2020-01-14] MEDS ORDERED: VANCOMYCIN HCL INJ 1000 MG VIAL IV ONE (22:13)
[2020-01-14] MEDS ORDERED: CEFEPIME 2 GM/D5W RTU 2 GM/50 ML RTUPB IV ONE (22:13)
[2020-01-14 22:16] LABS: ABSOLUTE LYMPHOCYTES# (MANUAL) 44.7 10^3/uL (0.5-4.7); ABSOLUTE MONOCYTES # (MANUAL) 2.9 10^3/uL (0.1-1.4); BAND NEUTROPHILS % (MANUAL) 1 % (3-5); BASOPHILS % (MANUAL) 0 % (0-2); EOSINOPHILS % (MANUAL) 0 % (0-6); MONOCYTES % (MANUAL) 5 % (3-13); SEGMENTED NEUTROPHILS % (MAN) 15 % (42-78); TOTAL CELLS COUNTED 100
[2020-01-14 22:17] LABS: IMMATURE MONONUCLEAR% (MANUAL) 2 % (0); LYMPHOCYTES % (MANUAL) 72 % (13-45)
[2020-01-14 22:21] LABS: ANISOCYTOSIS SLIGHT; SMUDGE CELLS PRESENT; TOXIC GRANULATION SLIGHT
[2020-01-14 22:26] LABS: PLATELET COMMENT ADEQUATE; POLYCHROMASIA SLIGHT
--- NOTE | 2020-01-14 23:35 | EKG REPORT ---
SEVERITY:- NORMAL ECG - SINUS RHYTHM : Confirmed by: Mamta Pringle MD 14-Jan-2020 23:34:51
[2020-01-14] MEDS ORDERED: VANCOMYCIN HCL INJ 1000 MG VIAL ONE (23:45)
[2020-01-15] MEDS ORDERED: DEXTROSE 40% GEL 15 GM TUBE PO PRN ×2 (05:27)
[2020-01-15] MEDS ORDERED: DEXTROSE 50%-WATER 25 GM/50 ML DISP.SYRIN IV PRN ×2 (05:27)
[2020-01-15] MEDS ORDERED: GLUCAGON,HUMAN RECOMB 1 MG INJ IM PRN (05:27)
--- NOTE | 2020-01-15 05:30 | PDOC H&P ---
History of Present Illness Admission Date/PCP: 01/15/20 03:28 Patient complains of: Feeling weak and short of breath History of Present Illness: The patient is extremely hard of hearing and he does not have his hearing aids. Much of the information is from his most recent admission to [facility] FARIDEH OCHOA is a 74 year old male who was recently discharged from [facility] after being transferred from [facility]. He tested positive for COVID January 05. He presents with increasing sickness including shortness of breath and fever. On exam his white blood cell count is elevated but this is due to the leukemia. His sodium is low at 127. Glucose is high at 301. Chest x-ray reveals a left lower lobe infiltrate. The patient will be admitted for treatment of pneumonia. He was just in [facility] and so it is difficult to know if this is still COVID or a separate healthcare-acquired pneumonia. We will therefore use broad-spectrum antibiotic therapy. Past Medical History Cardiac Medical History: Reports: Hypertension Endocrine Medical History: Reports: Diabetes Mellitus Type 2 Malignancy Medical History: Reports: Leukemia Past Surgical History Past Surgical History: Reports: Other - prostate bx Social History Information Source: Patient, [facility] Records Smoking Status: Never Smoker Electronic Cigarette use?: No Frequency of Alcohol Use: None Hx Recreational Drug Use: No - Advance Directive Resuscitation Status: Full Code Family History Family History: DM, Hypertension Parental Family History Reviewed: Yes Children Family History Reviewed: Yes Sibling(s) Family History Reviewed.: Yes Medication/Allergy Home Medications: Amlodipine Besylate [Norvasc 5 mg Tablet] 5 mg PO DAILY 01/15/20 Canagliflozin [Invokana] 1 tab PO DAILY 01/15/20 Fenofibrate 200mg 200 mg PO DAILY 01/15/20 Insulin NPH Hum/Reg Insulin Hm [Humulin 70/30 Kwikpen] 64 unit SQ BID 01/15/20 Lisinopril [Prinivil] 20 mg PO DAILY 01/15/20 Metformin HCl [Glucophage] 1,000 mg PO BID 01/15/20 Pravastatin Sodium 20 mg PO DAILY 01/15/20 Allergies/Adverse Reactions: No Known Allergies Allergy (Verified 01/06/20 13:47) Review of Systems All systems: reviewed and no additional remarkable complaints except as stated Constitutional: PRESENT: fatigue, fever(s) Respiratory: PRESENT: cough, dyspnea Physical Exam Vital Signs: Temp Pulse Resp BP Pulse Ox 98.7 F 101 H 26 H 162/91 H 93 01/15/20 04:01 01/14/20 20:00 01/15/20 03:01 01/15/20 04:01 01/15/20 04:01 Intake & Output 01/13/20 01/14/20 01/15/20 06:59 06:59 06:59 Intake Total 300 Balance 300 Weight 117.934 kg General appearance: PRESENT: cooperative, well-developed, other - Mild to moderate distress Head exam: PRESENT: atraumatic, normocephalic Ear exam: PRESENT: normal external ear exam. ABSENT: bleeding, drainage Neck exam: ABSENT: carotid bruit, JVD, lymphadenopathy Respiratory exam: PRESENT: clear to auscultation koffi, symmetrical, tachypnea. ABSENT: rales, rhonchi, wheezes Cardiovascular exam: PRESENT: RRR, +S1, +S2. ABSENT: bradycardia, diastolic murmur, irregular rhythm, systolic murmur, tachycardia GI/Abdominal exam: PRESENT: distended - Protuberant abdomen, normal bowel sounds, soft. ABSENT: tenderness Rectal exam: PRESENT: deferred Gentrourinary exam: ABSENT: indwelling catheter Extremities exam: PRESENT: pedal edema Musculoskeletal exam: PRESENT: normal inspection. ABSENT: deformity, dislocation Neurological exam: PRESENT: alert, awake, oriented to person, oriented to place, oriented to situation. ABSENT: CN II-XII grossly intact - Marked hearing loss Psychiatric exam: PRESENT: flat affect. ABSENT: agitated, anxious Focused psych exam: ABSENT: delusional, paranoid, restlessness Skin exam: PRESENT: dry, normal color, warm. ABSENT: rash Results Laboratory Results: 01/14/20 21:09 01/14/20 21:09 01/14/20 01/14/20 01/14/20 21:09 21:09 21:09 WBC 58.1 H* RBC 5.12 Hgb 14.5 Hct 44.0 MCV 86 MCH 28.3 MCHC 32.9 RDW 14.9 H Plt Count 301 Seg Neutrophils % Not Reportable VBG pH 7.48 H VBG pCO2 27.8 L VBG HCO3 20.4 VBG Base Excess -1.6 Sodium 127.2 L Potassium 4.7 Chloride 94 L Carbon Dioxide 21 L Anion Gap 12 BUN 18 Creatinine 1.11 Est GFR ( Amer) > 60 Glucose 301 H Lactic Acid Calcium 9.1 Total Bilirubin 1.4 H AST 17 Alkaline Phosphatase 46 Total Protein 6.3 Albumin 3.7 01/14/20 01/15/20 22:49 03:52 WBC RBC Hgb Hct MCV MCH MCHC RDW Plt Count Seg Neutrophils % VBG pH VBG pCO2 VBG HCO3 VBG Base Excess Sodium Potassium Chloride Carbon Dioxide Anion Gap BUN Creatinine Est GFR ( Amer) Glucose Lactic Acid 1.0 1.4 Calcium Total Bilirubin AST Alkaline Phosphatase Total Protein Albumin 01/14/20 21:09 Troponin I < 0.012 Impressions: Chest X-Ray 01/14/20 20:50 IMPRESSION: Mild progressive airspace disease left lung base retrocardiac. Assessment and Plan - Diagnosis (1) Pneumonia Qualifiers: Pneumonia type: due to unspecified organism Laterality: left Lung location: lower lobe of lung Qualified Code(s): J18.9 - Pneumonia, unspecified organism Is this a current diagnosis for this admission?: Yes Plan: Broad-spectrum antibiotics as this could be a healthcare acquired pneumonia with his recent hospitalization at [facility]. Supportive care and oxygen if needed. (2) COVID-19 Is this a current diagnosis for this admission?: Yes Plan: Antibiotics as above. Decadron as well as vitamin C, vitamin D, melatonin and zinc. (3) Chronic lymphocytic leukemia (CLL), B-cell Qualifiers: Leukemia Active/Remission status: without remission Qualified Code(s): C91.10 - Chronic lymphocytic leukemia of B-cell type not having achieved remission Is this a current diagnosis for this admission?: Yes Plan: Monitor white blood cell count. Please also see oncology/hematology consult (4) Hyperglycemia due to type 2 diabetes mellitus Qualifiers: Diabetes mellitus rat exterminator insulin use: with [facility] use Qualified Code(s): E11.65 - Type 2 diabetes mellitus with hyperglycemia; Z79.4 - superintendent terminal (current) use of insulin Is this a current diagnosis for this admission?: Yes Plan: Accu-Cheks before meals and at bedtime with sliding scale coverage. (5) Hypertension Qualifiers: Hypertension type: essential hypertension Qualified Code(s): I10 - Essential (primary) hypertension Is this a current diagnosis for this admission?: Yes Plan: Continue home medications - Time Time Spent with patient: 35 or more minutes Medications reviewed and adjusted accordingly: Yes Anticipated Discharge Disposition: Home with Home Health Anticipated Discharge Timeframe: Unknown - Inpatient Certification Based on my medical assessment, after consideration of the patient's comorbidities, presenting symptoms, or acuity I expect that the services needed warrant INPATIENT care.: Yes I certify that my determination is in accordance with my understanding of Medicare's requirements for reasonable and necessary INPATIENT services [42 CFR 412.3e].: Yes Medical Necessity: Significant Comorbidiites Make Outpatient Treatment Too Risky, Need For IV Fluids, Need For Continuous Telemetry Monitoring, Need for Pain Control Post Hospital Care: D/C or Transfer Summary
[2020-01-15] MEDS ORDERED: ALBUTEROL SULFATE HFA (90 MCG/PUFF) 8 GM MDI IH PRN (05:32)
[2020-01-15] MEDS ORDERED: NORMAL SALINE 1000 ML 1,000 ML IV PRN (05:32)
[2020-01-15] MEDS ORDERED: METOPROLOL TARTRATE PF/INJ 5 MG/5 ML SDV IV PRN (05:43)
[2020-01-15] MEDS ORDERED: HYDRALAZINE HCL INJ/PF 20 MG/1 ML SDV IV PRN (05:43)
[2020-01-15] MEDS ORDERED: PHARMACY COMMUNICATION ORDER MC NR (05:45)
[2020-01-15] MEDS ORDERED: VANCOMYCIN HCL 0 MG in DEXTROSE 5%-WATER 250 ML IV NR (05:45)
[2020-01-15] MEDS ORDERED: INSULIN REG, HUMAN 100 UNIT/ML 3 ML VIAL (PYX) ONE (06:13)
[2020-01-15] MEDS ORDERED: INSULIN REG, HUMAN 100 UNIT/ML 3 ML VIAL (PYX) IV ONE (06:45)
--- NOTE | 2020-01-15 08:02 | Progress Note ---
Provider Note Provider Note: Hematology/Oncology consult received. Patient is currently in isolation for COVID-19. I have not been able to examine the patient, but medical records were reviewed. I also discussed his history and physical findings with the ED physician last night. He was recently diagnosed with B-cell CLL. Although WBC are slightly elevated, his HGB and PLT are normal. Therefore, no intervention is recommended at this time. I will be happy to complete a full consult once he has been cleared from COVID-19 restrictions. I will also be happy to follow him as out patient.
[2020-01-15] MEDS: INSULIN REG, HUMAN 100 UNIT/ML 3 ML VIAL (PYX) SUBCUT SCH ×4 (09:22→22:02)
[2020-01-15] MEDS: ENOXAPARIN SODIUM INJ 40 MG/0.4 ML DISP.SYRIN SUBCUT SCH (09:23)
[2020-01-15] MEDS: ASCORBIC ACID 500 MG TABLET PO SCH ×2 (09:23→17:11)
[2020-01-15] MEDS: DEXAMETHASONE SOD PHOSPHATE INJ 4 MG/1 ML VIAL IV SCH (09:23)
[2020-01-15] MEDS: ZINC SULFATE 220 MG CAPSULE PO SCH (09:23)
[2020-01-15] MEDS: GUAIFENESIN 600 MG TABLET.SA PO SCH ×2 (09:23→21:45)
[2020-01-15] MEDS: CHOLECALCIFEROL (D3) 1,000 UNIT (25 MCG) TABLET PO SCH (09:23)
[2020-01-15] MEDS ORDERED: CEFEPIME 2 GM/D5W RTU 2 GM/50 ML RTUPB IV SCH (10:00)
[2020-01-15] MEDS: CEFEPIME HCL 2 GM in DEXTROSE 5%-WATER 50 ML IV SCH ×2 (10:04→21:44)
[2020-01-15] MEDS: VANCOMYCIN HCL 1,250 MG in DEXTROSE 5%-WATER 250 ML IV SCH ×2 (11:21→22:42)
[2020-01-15] MEDS ORDERED: IPRATROPIUM/ALBUTEROL 0.5-2.5 MG/3 ML AMPUL NEB PRN (12:32)
[2020-01-15 12:44] LABS: APPEARANCE,URINE CLEAR; BILIRUBIN,URINE NEGATIVE (NEGATIVE); COLOR,URINE YELLOW; GLUCOSE, URINE >=500 mg/dL (NEGATIVE); KETONES,URINE NEGATIVE (NEGATIVE); PROTEIN,URINE NEGATIVE (NEGATIVE); UROBILINOGEN,URINE NEGATIVE mg/dL (<2.0)
[2020-01-15] MEDS: IPRATROPIUM/ALBUTEROL 0.5-2.5 MG/3 ML AMPUL NEB SCH ×3 (14:30→20:51)
[2020-01-15 15:35] LABS: INTERNATIONAL RATION (INR) 1.05; PROTHROMBIN TIME 13.9 SEC (11.4-15.4)
[2020-01-15 15:38] LABS: D-DIMER 0.48 ug/mL (0.00-0.50)
[2020-01-15 16:52] LABS: C-REACTIVE PROTEIN 228.2 mg/L (<10.0)
[2020-01-15] MEDS: MELATONIN 5 MG TABLET PO SCH (21:44)
[2020-01-16] MEDS ORDERED: ACETAMINOPHEN 325 MG TABLET ONE (01:17)
[2020-01-16 07:08] LABS: HEMATOCRIT 46.1 % (37.9-51.0); HEMOGLOBIN 15.4 g/dL (13.5-17.0); MEAN CORPUSCULAR HEMOGLOBIN 28.9 pg (27.0-33.4); MEAN CORPUSCULAR HGB CONC 33.4 g/dL (32.0-36.0); MEAN CORPUSCULAR VOLUME 87 fl (80-97); PLATELET COUNT 324 10^3/uL (150-450); RED BLOOD COUNT 5.33 10^6/uL (4.35-5.55)
[2020-01-16 07:12] LABS: ALBUMIN 4.3 g/dL (3.5-5.0); ALKALINE PHOSPHATASE 44 U/L (38-126); ANION GAP 16 (5-19); ASPARTATE AMINO TRANSFERASE 29 U/L (17-59); BILIRUBIN,DIRECT 0.5 mg/dL (0.0-0.4); BILIRUBIN,TOTAL 1.2 mg/dL (0.2-1.3); BLOOD UREA NITROGEN 22 mg/dL (7-20); CALCIUM 9.2 mg/dL (8.4-10.2); CARBON DIOXIDE 23 mmol/L (22-30); CHLORIDE 90 mmol/L (98-107); GLUCOSE 238 mg/dL (75-110); TOTAL PROTEIN 7.1 g/dL (6.3-8.2)
[2020-01-16] MEDS: IPRATROPIUM/ALBUTEROL 0.5-2.5 MG/3 ML AMPUL NEB SCH ×3 (07:46→20:57)
[2020-01-16 08:03] LABS: ABSOLUTE LYMPHOCYTES# (MANUAL) 59.7 10^3/uL (0.5-4.7); ABSOLUTE MONOCYTES # (MANUAL) 1.5 10^3/uL (0.1-1.4); BASOPHILS % (MANUAL) 0 % (0-2); EOSINOPHILS % (MANUAL) 0 % (0-6); IMMATURE MONONUCLEAR% (MANUAL) 1 % (0); LYMPHOCYTES % (MANUAL) 82 % (13-45); MONOCYTES % (MANUAL) 2 % (3-13); SEGMENTED NEUTROPHILS % (MAN) 15 % (42-78); TOTAL CELLS COUNTED 100
[2020-01-16 08:04] LABS: ANISOCYTOSIS SLIGHT
[2020-01-16 08:05] LABS: PLATELET COMMENT ADEQUATE; POLYCHROMASIA SLIGHT
[2020-01-16 08:06] LABS: WHITE BLOOD COUNT 72.8 10^3/uL (4.0-10.5)
[2020-01-16] MEDS ORDERED: (PENDING PHARMACY ID) (Pravastatin Sodium [Pravastatin Sodium] 20 MG) PO SCH (10:00)
[2020-01-16] MEDS ORDERED: (PENDING PHARMACY ID) (Lisinopril [Prinivil] 20 MG) PO SCH (10:00)
[2020-01-16] MEDS ORDERED: FENOFIBRATE 200 MG PO SCH (10:00)
[2020-01-16] MEDS: INSULIN REG, HUMAN 100 UNIT/ML 3 ML VIAL (PYX) SUBCUT SCH ×2 (10:16→12:13)
[2020-01-16] MEDS: DEXAMETHASONE SOD PHOSPHATE INJ 4 MG/1 ML VIAL IV SCH (10:17)
[2020-01-16] MEDS: ZINC SULFATE 220 MG CAPSULE PO SCH (10:17)
[2020-01-16] MEDS: ASCORBIC ACID 500 MG TABLET PO SCH ×2 (10:18→18:17)
[2020-01-16] MEDS: AMLODIPINE BESYLATE 5 MG TABLET PO SCH (10:18)
[2020-01-16] MEDS: CHOLECALCIFEROL (D3) 1,000 UNIT (25 MCG) TABLET PO SCH (10:18)
[2020-01-16] MEDS: FENOFIBRATE NANOCRYSTALLIZED 145 MG TABLET PO SCH (10:18)
[2020-01-16] MEDS: LISINOPRIL 10 MG TABLET PO SCH (10:18)
[2020-01-16] MEDS: GUAIFENESIN 600 MG TABLET.SA PO SCH ×2 (10:18→21:36)
[2020-01-16] MEDS: CEFEPIME HCL 2 GM in DEXTROSE 5%-WATER 50 ML IV SCH ×2 (10:18→21:36)
[2020-01-16] MEDS: ENOXAPARIN SODIUM INJ 40 MG/0.4 ML DISP.SYRIN SUBCUT SCH (10:19)
[2020-01-16 10:31] LABS: PATH REVIEW PATHOLOGIST REVIEWED
[2020-01-16] MEDS: VANCOMYCIN HCL 1,250 MG in DEXTROSE 5%-WATER 250 ML IV SCH ×2 (11:14→22:58)
[2020-01-16] MEDS ORDERED: GLUCAGON,HUMAN RECOMB 1 MG INJ IM PRN (12:11)
[2020-01-16] MEDS ORDERED: DEXTROSE 50%-WATER 25 GM/50 ML DISP.SYRIN IV PRN ×2 (12:11)
[2020-01-16] MEDS ORDERED: DEXTROSE 40% GEL 15 GM TUBE PO PRN ×2 (12:11)
--- NOTE | 2020-01-16 12:32 | PDOC PROGRESS REPORT ---
Subjective Progress Note for:: 01/16/20 Subjective:: The patient is extremely hard of hearing and he does not have his hearing aids. Much of the information is from his most recent admission to [facility] FARIDEH OCHOA is a 74 year old male who was recently discharged from [facility] after being transferred from [facility]. He tested positive for COVID January 05. He presents with increasing sickness including shortness of breath and fever. On exam his white blood cell count is elevated but this is due to the leukemia. His sodium is low at 127. Glucose is high at 301. Chest x-ray reveals a left lower lobe infiltrate. The patient will be admitted for treatment of pneumonia. He was just in [facility] and so it is difficult to know if this is still COVID or a separate healthcare-acquired pneumonia. We will therefore use broad-spectrum antibiotic therapy. 01/16/2020. No acute events overnight. Patient comfortable stable no apparent distress, alert and oriented x2 however patient does not follow three-step command, and gets confused easily, denies any fever, chills, nausea, vomiting, diarrhea, constipation or any urinary symptoms. SPO2 WNL on RA. Does not seem to be in any acute distress. Reason For Visit: COVID 19,PNEUMONIA,CHRONIC LYMPHOCYTIC LEUKEMIA, Physical Exam Vital Signs: Temp Pulse Resp BP Pulse Ox 99.1 F 102 H 18 164/75 H 94 01/16/20 11:16 01/16/20 11:16 01/16/20 11:16 01/16/20 11:16 01/16/20 11:16 Intake & Output 01/15/20 01/16/20 01/17/20 06:59 06:59 06:59 Intake Total 300 550 300 Output Total 0 100 Balance 300 450 300 Weight 114.9 kg 114.9 kg General appearance: PRESENT: no acute distress, obese Head exam: PRESENT: atraumatic, normocephalic Respiratory exam: PRESENT: clear to auscultation koffi. ABSENT: rales, rhonchi, wheezes Cardiovascular exam: PRESENT: RRR. ABSENT: diastolic murmur, rubs, systolic murmur GI/Abdominal exam: PRESENT: normal bowel sounds, soft. ABSENT: distended, guarding, mass, organolmegaly, rebound, tenderness Neurological exam: PRESENT: alert, awake, oriented to person, oriented to place, CN II-XII grossly intact. ABSENT: motor sensory deficit Results Laboratory Results: 01/16/20 06:10 01/16/20 06:10 01/15/20 01/15/20 01/16/20 11:55 15:11 06:10 WBC 72.8 H* RBC 5.33 Hgb 15.4 Hct 46.1 MCV 87 MCH 28.9 MCHC 33.4 RDW 15.0 H Plt Count 324 Seg Neutrophils % Not Reportable Sodium Potassium Chloride Carbon Dioxide Anion Gap BUN Creatinine Est GFR ( Amer) Glucose Calcium Magnesium Ferritin 350.00 Total Bilirubin AST Alkaline Phosphatase C-Reactive Protein 228.2 H Total Protein Albumin Urine Color YELLOW Urine Appearance CLEAR Urine pH 6.0 Ur Specific [place] 1.020 Urine Protein NEGATIVE Urine Glucose (UA) >=500 H Urine Ketones NEGATIVE Urine Blood NEGATIVE Urine RBC (Auto) 1 01/16/20 06:10 WBC RBC Hgb Hct MCV MCH MCHC RDW Plt Count Seg Neutrophils % Sodium 128.7 L Potassium 5.0 Chloride 90 L Carbon Dioxide 23 Anion Gap 16 BUN 22 H Creatinine 1.05 Est GFR ( Amer) > 60 Glucose 238 H Calcium 9.2 Magnesium 1.9 Ferritin Total Bilirubin 1.2 AST 29 Alkaline Phosphatase 44 C-Reactive Protein Total Protein 7.1 Albumin 4.3 Urine Color Urine Appearance Urine pH Ur Specific [place] Urine Protein Urine Glucose (UA) Urine Ketones Urine Blood Urine RBC (Auto) 01/14/20 21:09 Troponin I < 0.012 Impressions: Chest X-Ray 01/14/20 20:50 IMPRESSION: Mild progressive airspace disease left lung base retrocardiac. Assessment and Plan - Diagnosis (1) COVID-19 Is this a current diagnosis for this admission?: Yes Plan: Patient recently discharged from [facility] however he was treated for COVID-19. SPO2 WNL on arrival, low-grade fever, does not appear to be in acute distress. Not sure if patient symptoms are due to COVID-19 or he is having superimposed healthcare associated pneumonia. Continue IV antibiotics, Decadron as well as vitamin C, vitamin D, melatonin and zinc. No need for Remdesivir or therapeutic dose anticoagulation (2) Chronic lymphocytic leukemia (CLL), B-cell Qualifiers: Leukemia Active/Remission status: without remission Qualified Code(s): C91.10 - Chronic lymphocytic leukemia of B-cell type not having achieved remission Is this a current diagnosis for this admission?: Yes Plan: Monitor white blood cell count. Oncology consulted. Recommendations noted. (3) Hypertension Qualifiers: Hypertension type: essential hypertension Qualified Code(s): I10 - Essential (primary) hypertension Is this a current diagnosis for this admission?: Yes Plan: Normotensive. Euvolemic. Cardiac diet, resume home meds, adjust meds as needed. PRN IV hydralazine and metoprolol. Outpatient PCP follow-up. (4) Pneumonia Qualifiers: Pneumonia type: due to unspecified organism Laterality: left Lung location: lower lobe of lung Qualified Code(s): J18.9 - Pneumonia, unspecified organism Is this a current diagnosis for this admission?: Yes Plan: Patient was recently admitted at [facility] and was treated for COVID-19, presented with mild hypoxia, altered mental status that fever. Not sure if this is still COVID-19 or patient is having superimposed bacterial pneumonia or healthcare associated pneumonia. Day 2 IV antibiotics Day 2 IV vancomycin Day 2 IV cefepime. Continue empiric IV antibiotics. Follow-up cultures. (5) Diabetes Qualifiers: Diabetes mellitus type: type 2 Is this a current diagnosis for this admission?: Yes Plan: Uncontrolled. Diabetic diet, sliding scale insulin, pre-meal insulin, basal insulin, Accu- Chek, hypoglycemia protocol. Resume home meds upon discharge. Outpatient PCP follow-up. - Time Time Spent with patient: 35 or more minutes Medications reviewed and adjusted accordingly: Yes Anticipated Discharge Disposition: Home with Home Health Anticipated Discharge Timeframe: within 48 hours
[2020-01-16] MEDS ORDERED: INSULIN GLARGINE,HUM.REC.ANLOG 1,000 UNIT/10 ML VIAL SUBCUT SCH (18:00)
[2020-01-16] MEDS: INSULIN LISPRO 100 UNIT/ML 3 ML VIAL SUBCUT SCH ×2 (18:17→21:35)
[2020-01-16] MEDS: ATORVASTATIN CALCIUM 10 MG TABLET PO SCH (21:36)
[2020-01-16] MEDS: MELATONIN 5 MG TABLET PO SCH (21:36)
[2020-01-17] MEDS: ACETAMINOPHEN 325 MG TABLET PO PRN (00:11)
[2020-01-17] MEDS: IPRATROPIUM/ALBUTEROL 0.5-2.5 MG/3 ML AMPUL NEB SCH ×3 (07:47→20:39)
[2020-01-17] MEDS: INSULIN LISPRO 100 UNIT/ML 3 ML VIAL SUBCUT SCH ×4 (10:08→22:56)
[2020-01-17] MEDS: LISINOPRIL 10 MG TABLET PO SCH (10:16)
[2020-01-17] MEDS: ZINC SULFATE 220 MG CAPSULE PO SCH (10:17)
[2020-01-17] MEDS: GUAIFENESIN 600 MG TABLET.SA PO SCH ×2 (10:17→21:14)
[2020-01-17] MEDS: AMLODIPINE BESYLATE 5 MG TABLET PO SCH (10:17)
[2020-01-17] MEDS: ASCORBIC ACID 500 MG TABLET PO SCH ×2 (10:17→18:19)
[2020-01-17] MEDS: CHOLECALCIFEROL (D3) 1,000 UNIT (25 MCG) TABLET PO SCH (10:17)
[2020-01-17] MEDS: DEXAMETHASONE SOD PHOSPHATE INJ 4 MG/1 ML VIAL IV SCH (10:17)
[2020-01-17] MEDS: FENOFIBRATE NANOCRYSTALLIZED 145 MG TABLET PO SCH (10:17)
[2020-01-17] MEDS: CEFEPIME HCL 2 GM in DEXTROSE 5%-WATER 50 ML IV SCH ×2 (10:18→22:57)
[2020-01-17] MEDS: VANCOMYCIN HCL 1,250 MG in DEXTROSE 5%-WATER 250 ML IV SCH (10:18)
[2020-01-17] MEDS: ENOXAPARIN SODIUM INJ 120 MG/0.8 ML DISP.SYRIN SUBCUT SCH ×2 (10:21→21:15)
[2020-01-17 10:31] LABS: HEMATOCRIT 41.6 % (37.9-51.0); HEMOGLOBIN 13.9 g/dL (13.5-17.0); MEAN CORPUSCULAR HEMOGLOBIN 28.5 pg (27.0-33.4); MEAN CORPUSCULAR HGB CONC 33.5 g/dL (32.0-36.0); MEAN CORPUSCULAR VOLUME 85 fl (80-97); PLATELET COUNT 260 10^3/uL (150-450); RED BLOOD COUNT 4.89 10^6/uL (4.35-5.55)
[2020-01-17 10:33] LABS: WHITE BLOOD COUNT 64.7 10^3/uL (4.0-10.5)
--- NOTE | 2020-01-17 10:33 | PDOC PROGRESS REPORT ---
Subjective Progress Note for:: 01/17/20 Subjective:: The patient is extremely hard of hearing and he does not have his hearing aids. Much of the information is from his most recent admission to [facility] FARIDEH OCHOA is a 74 year old male who was recently discharged from [facility] after being transferred from [facility]. He tested positive for COVID January 05. He presents with increasing sickness including shortness of breath and fever. On exam his white blood cell count is elevated but this is due to the leukemia. His sodium is low at 127. Glucose is high at 301. Chest x-ray reveals a left lower lobe infiltrate. The patient will be admitted for treatment of pneumonia. He was just in [facility] and so it is difficult to know if this is still COVID or a separate healthcare-acquired pneumonia. We will therefore use broad-spectrum antibiotic therapy. 01/16/2020. No acute events overnight. Patient comfortable stable no apparent distress, alert and oriented x2 however patient does not follow three-step command, and gets confused easily, denies any fever, chills, nausea, vomiting, diarrhea, constipation or any urinary symptoms. SPO2 WNL on RA. Does not seem to be in any acute distress. 01/17/2020. No acute events overnight. Patient has been having fever otherwise in no apparent distress, mild hypoxia SPO2 low 90s on room air, patient is alert very pleasant and in no apparent distress, unfortunately only oriented to self and place, does not follow three-step commands, tends to get out of bed, denies any chest pain, nausea, vomiting, diarrhea, constipation or any urinary symptoms. Reason For Visit: COVID 19,PNEUMONIA,CHRONIC LYMPHOCYTIC LEUKEMIA, Physical Exam Vital Signs: Temp Pulse Resp BP Pulse Ox 102.1 F H 93 21 H 149/71 H 91 L 01/17/20 09:12 01/17/20 09:12 01/17/20 09:12 01/17/20 09:12 01/17/20 09:12 Intake & Output 01/16/20 01/17/20 01/18/20 06:59 06:59 06:59 Intake Total 550 2250 Output Total 100 3 Balance 450 2247 Weight 114.9 kg 114.9 kg General appearance: PRESENT: no acute distress, obese, well-developed, well- nourished Head exam: PRESENT: atraumatic, normocephalic Neck exam: ABSENT: carotid bruit, JVD, lymphadenopathy, thyromegaly Respiratory exam: PRESENT: clear to auscultation koffi. ABSENT: rales, rhonchi, wheezes Cardiovascular exam: PRESENT: RRR. ABSENT: diastolic murmur, rubs, systolic murmur Neurological exam: PRESENT: alert, awake, oriented to person, oriented to place, CN II-XII grossly intact. ABSENT: motor sensory deficit Results Laboratory Results: 01/17/20 10:00 01/17/20 10:00 Creatinine Cancelled Est GFR ( Amer) Cancelled Est GFR (Non-Af Amer) Cancelled 01/14/20 22:20 Blood Blood Culture (PCR) - Final 01/14/20 21:09 Troponin I < 0.012 Impressions: Chest X-Ray 01/14/20 20:50 IMPRESSION: Mild progressive airspace disease left lung base retrocardiac. Assessment and Plan - Diagnosis (1) Hyponatremia Is this a current diagnosis for this admission?: Yes Plan: Likely chronic but acutely dropping. No previous labs available except on 01/06/2020 patient had a sodium level of 129.1. On this admission patient sodium was 128 however it has dropped to 120 today. Patient is alert and oriented x2, not having any seizure however he is confused not sure if this is sequela of COVID-19 or hyponatremia. We will start on 3% normal saline with correction goal of 8 to 10 mEq within 24 hours, with BMP every 3 hours. Monitor vitals. Monitor for seizure activity. (2) COVID-19 Is this a current diagnosis for this admission?: Yes Plan: Patient is having fever and becoming mildly hypoxic on RA. Patient recently discharged from [facility] however he was treated for COVID-19. SPO2 WNL on arrival, low-grade fever, does not appear to be in acute distress. Not sure if patient symptoms are due to COVID-19 or he is having superimposed healthcare associated pneumonia. Day 2 IV antibiotics. Day 2 IV vancomycin. Day 2 IV cefepime. Day 2 p.o. Decadron. Day 1 therapeutic dose Lovenox. Continue IV antibiotics, Decadron as well as vitamin C, vitamin D, melatonin and zinc. No need for Remdesivir this point. Will check with family if patient received Remesivir at [place]. (3) Chronic lymphocytic leukemia (CLL), B-cell Qualifiers: Leukemia Active/Remission status: without remission Qualified Code(s): C91.10 - Chronic lymphocytic leukemia of B-cell type not having achieved remission Is this a current diagnosis for this admission?: Yes Plan: Monitor white blood cell count. Oncology consulted. Recommendations noted. (4) Hypertension Qualifiers: Hypertension type: essential hypertension Qualified Code(s): I10 - Essential (primary) hypertension Is this a current diagnosis for this admission?: Yes Plan: Normotensive. Euvolemic. Cardiac diet, resume home meds, adjust meds as needed. PRN IV hydralazine and metoprolol. Outpatient PCP follow-up. (5) Pneumonia Qualifiers: Pneumonia type: due to unspecified organism Laterality: left Lung location: lower lobe of lung Qualified Code(s): J18.9 - Pneumonia, unspecified organism Is this a current diagnosis for this admission?: Yes Plan: Patient was recently admitted at [facility] and was treated for COVID-19, presented with mild hypoxia, altered mental status that fever. Not sure if this is still COVID-19 or patient is having superimposed bacterial pneumonia or healthcare associated pneumonia. Day 2 IV antibiotics Day 2 IV vancomycin Day 2 IV cefepime. Continue empiric IV antibiotics. Follow-up cultures. (6) Diabetes Qualifiers: Diabetes mellitus type: type 2 Is this a current diagnosis for this admission?: Yes Plan: Uncontrolled. Diabetic diet, sliding scale insulin, pre-meal insulin, basal insulin, Accu- Chek, hypoglycemia protocol. Resume home meds upon discharge. Outpatient PCP follow-up. (7) Acute metabolic encephalopathy Is this a current diagnosis for this admission?: Yes Plan: Patient is alert, cooperative with physical examination, does not appear to be in apparent distress, only oriented to self and place and does not follow three- step commands. Not sure if this is sequela COVID-19 infection. As per son patient has some confusion at baseline but is still lives in independent life. Continue treating underlying infectious process, if no improvement will obtain MRI brain to rule out any underlying disease. Continue fall, seizure and aspiration precaution. Supportive measures. - Time Time Spent with patient: 25-34 minutes Medications reviewed and adjusted accordingly: Yes Anticipated Discharge Disposition: Home with Home Health Anticipated Discharge Timeframe: within 72 hours
[2020-01-17 10:42] LABS: ALBUMIN 3.4 g/dL (3.5-5.0); ALKALINE PHOSPHATASE 39 U/L (38-126); ANION GAP 14 (5-19); ASPARTATE AMINO TRANSFERASE 27 U/L (17-59); BILIRUBIN,DIRECT 0.3 mg/dL (0.0-0.4); BLOOD UREA NITROGEN 22 mg/dL (7-20); CALCIUM 8.2 mg/dL (8.4-10.2); CARBON DIOXIDE 18 mmol/L (22-30); CHLORIDE 89 mmol/L (98-107); GLUCOSE 277 mg/dL (75-110); POTASSIUM 4.8 mmol/L (3.6-5.0)
[2020-01-17 10:47] LABS: VANCOMYCIN,TROUGH 8.6 ug/mL (5.0-20.0)
[2020-01-17 10:54] LABS: ABSOLUTE LYMPHOCYTES# (MANUAL) 53.7 10^3/uL (0.5-4.7); ABSOLUTE MONOCYTES # (MANUAL) 0.6 10^3/uL (0.1-1.4); BAND NEUTROPHILS % (MANUAL) 1 % (3-5); BASOPHILS % (MANUAL) 0 % (0-2); EOSINOPHILS % (MANUAL) 0 % (0-6); IMMATURE MONONUCLEAR% (MANUAL) 3 % (0); LYMPHOCYTES % (MANUAL) 83 % (13-45); MONOCYTES % (MANUAL) 1 % (3-13); SEGMENTED NEUTROPHILS % (MAN) 12 % (42-78); TOTAL CELLS COUNTED 100
[2020-01-17 10:56] LABS: ANISOCYTOSIS SLIGHT; PLATELET COMMENT ADEQUATE
[2020-01-17] MEDS ORDERED: LORAZEPAM INJ 2 MG/1 ML VIAL IV PRN (12:17)
[2020-01-17] MEDS: SODIUM CHLORIDE 3% 500 ML IV PRN ×2 (12:31→18:19)
[2020-01-17] MEDS ORDERED: SODIUM CHLORIDE 3% 1,000 ML IV ONE (13:00)
[2020-01-17 15:43] LABS: ANION GAP 10 (5-19); BLOOD UREA NITROGEN 23 mg/dL (7-20); CALCIUM 7.8 mg/dL (8.4-10.2); CARBON DIOXIDE 20 mmol/L (22-30); CHLORIDE 93 mmol/L (98-107); GLUCOSE 168 mg/dL (75-110); POTASSIUM 4.7 mmol/L (3.6-5.0)
[2020-01-17] MEDS ORDERED: CALCIUM GLUCONATE 1000 MG/10 ML INJ IV ONE (16:45)
[2020-01-17] MEDS ORDERED: INSULIN GLARGINE,HUM.REC.ANLOG 1,000 UNIT/10 ML VIAL SUBCUT SCH (18:00)
[2020-01-17] MEDS: VANCOMYCIN HCL 1,500 MG in DEXTROSE 5%-WATER 250 ML IV SCH ×2 (18:18→19:39)
[2020-01-17] MEDS: CALCIUM GLUCONATE 1 GM/NS 50 ML RTU IV ONE ×2 (18:18→19:38)
[2020-01-17 20:06] LABS: ANION GAP 13 (5-19); BLOOD UREA NITROGEN 26 mg/dL (7-20); CALCIUM 7.9 mg/dL (8.4-10.2); CARBON DIOXIDE 19 mmol/L (22-30); CHLORIDE 91 mmol/L (98-107); GLUCOSE 350 mg/dL (75-110); POTASSIUM 4.6 mmol/L (3.6-5.0)
[2020-01-17] MEDS: MELATONIN 5 MG TABLET PO SCH (21:14)
[2020-01-17] MEDS: ATORVASTATIN CALCIUM 10 MG TABLET PO SCH (21:14)
[2020-01-17 21:48] LABS: ANION GAP 10 (5-19); BLOOD UREA NITROGEN 25 mg/dL (7-20); CALCIUM 7.4 mg/dL (8.4-10.2); CARBON DIOXIDE 19 mmol/L (22-30); CHLORIDE 94 mmol/L (98-107); GLUCOSE 319 mg/dL (75-110); POTASSIUM 4.4 mmol/L (3.6-5.0)
[2020-01-17] MEDS ORDERED: SODIUM CHLORIDE 1 GM TABLET PO ONE (22:28)
[2020-01-18] MEDS: ACETAMINOPHEN 325 MG TABLET PO PRN ×3 (04:21→20:28)
[2020-01-18 04:22] LABS: ANION GAP 11 (5-19); BLOOD UREA NITROGEN 24 mg/dL (7-20); CARBON DIOXIDE 20 mmol/L (22-30); CHLORIDE 95 mmol/L (98-107); GLUCOSE 240 mg/dL (75-110); POTASSIUM 4.7 mmol/L (3.6-5.0)
[2020-01-18 04:36] LABS: HEMATOCRIT 41.1 % (37.9-51.0); HEMOGLOBIN 13.7 g/dL (13.5-17.0); MEAN CORPUSCULAR HEMOGLOBIN 28.4 pg (27.0-33.4); MEAN CORPUSCULAR HGB CONC 33.4 g/dL (32.0-36.0); MEAN CORPUSCULAR VOLUME 85 fl (80-97); PLATELET COUNT 259 10^3/uL (150-450); RED BLOOD COUNT 4.83 10^6/uL (4.35-5.55); RED CELL DISTRIBUTION WIDTH 14.7 % (11.5-14.0)
[2020-01-18 04:39] LABS: WHITE BLOOD COUNT 65.2 10^3/uL (4.0-10.5)
[2020-01-18] MEDS: VANCOMYCIN HCL 1,500 MG in DEXTROSE 5%-WATER 250 ML IV SCH ×2 (05:32→18:30)
[2020-01-18] MEDS: IPRATROPIUM/ALBUTEROL 0.5-2.5 MG/3 ML AMPUL NEB SCH ×3 (07:51→20:11)
[2020-01-18] MEDS: INSULIN LISPRO 100 UNIT/ML 3 ML VIAL SUBCUT SCH ×5 (08:33→22:28)
[2020-01-18] MEDS ORDERED: SODIUM CHLORIDE 3% 500 ML IV PRN (09:30)
[2020-01-18] MEDS: CEFEPIME HCL 2 GM in DEXTROSE 5%-WATER 50 ML IV SCH ×2 (10:31→22:29)
[2020-01-18] MEDS: ENOXAPARIN SODIUM INJ 120 MG/0.8 ML DISP.SYRIN SUBCUT SCH ×2 (10:32→22:29)
[2020-01-18] MEDS: LISINOPRIL 10 MG TABLET PO SCH (10:33)
[2020-01-18] MEDS: FENOFIBRATE NANOCRYSTALLIZED 145 MG TABLET PO SCH (10:33)
[2020-01-18] MEDS: AMLODIPINE BESYLATE 5 MG TABLET PO SCH (10:33)
[2020-01-18] MEDS: ZINC SULFATE 220 MG CAPSULE PO SCH (10:33)
[2020-01-18] MEDS: CHOLECALCIFEROL (D3) 1,000 UNIT (25 MCG) TABLET PO SCH (10:33)
[2020-01-18] MEDS: ASCORBIC ACID 500 MG TABLET PO SCH ×2 (10:33→17:39)
[2020-01-18] MEDS: DEXAMETHASONE SOD PHOSPHATE INJ 4 MG/1 ML VIAL IV SCH (10:34)
[2020-01-18] MEDS: GUAIFENESIN 600 MG TABLET.SA PO SCH ×2 (10:34→22:28)
[2020-01-18] MEDS: SODIUM BICARBONATE 650 MG TABLET PO SCH ×2 (10:35→22:32)
[2020-01-18 11:25] LABS: APPEARANCE,URINE CLEAR; BILIRUBIN,URINE NEGATIVE (NEGATIVE); COLOR,URINE YELLOW; GLUCOSE, URINE >=500 mg/dL (NEGATIVE); KETONES,URINE NEGATIVE (NEGATIVE); LEUKOCYTE ESTERASE,URINE NEGATIVE (NEGATIVE); NITRITE,URINE NEGATIVE (NEGATIVE); PROTEIN,URINE 30 mg/dL (NEGATIVE); URINE SPECIFIC GRAVITY 1.018; UROBILINOGEN,URINE NEGATIVE mg/dL (<2.0)
[2020-01-18 11:33] LABS: ANION GAP 14 (5-19); BLOOD UREA NITROGEN 19 mg/dL (7-20); CARBON DIOXIDE 19 mmol/L (22-30); CHLORIDE 92 mmol/L (98-107); GLUCOSE 251 mg/dL (75-110); POTASSIUM 4.3 mmol/L (3.6-5.0)
--- NOTE | 2020-01-18 11:36 | PDOC PROGRESS REPORT ---
Subjective Progress Note for:: 01/18/20 Subjective:: The patient is extremely hard of hearing and he does not have his hearing aids. Much of the information is from his most recent admission to [facility] FARIDEH OCHOA is a 74 year old male who was recently discharged from [facility] after being transferred from [facility]. He tested positive for COVID January 05. He presents with increasing sickness including shortness of breath and fever. On exam his white blood cell count is elevated but this is due to the leukemia. His sodium is low at 127. Glucose is high at 301. Chest x-ray reveals a left lower lobe infiltrate. The patient will be admitted for treatment of pneumonia. He was just in [facility] and so it is difficult to know if this is still COVID or a separate healthcare-acquired pneumonia. We will therefore use broad-spectrum antibiotic therapy. 01/16/2020. No acute events overnight. Patient comfortable stable no apparent distress, alert and oriented x2 however patient does not follow three-step command, and gets confused easily, denies any fever, chills, nausea, vomiting, diarrhea, constipation or any urinary symptoms. SPO2 WNL on RA. Does not seem to be in any acute distress. 01/17/2020. No acute events overnight. Patient has been having fever otherwise in no apparent distress, mild hypoxia SPO2 low 90s on room air, patient is alert very pleasant and in no apparent distress, unfortunately only oriented to self and place, does not follow three-step commands, tends to get out of bed, denies any chest pain, nausea, vomiting, diarrhea, constipation or any urinary symptoms. 02/18/2020. No acute events overnight. Patient mental status improved, patient was sitting in his recliner no apparent distress, alert and appears sharper than yesterday however oriented x2 and fails to follow three-step command, denies any fever, chills, nausea, vomiting, diarrhea, constipation or any urinary symptoms. Reason For Visit: COVID 19,PNEUMONIA,CHRONIC LYMPHOCYTIC LEUKEMIA, Physical Exam Vital Signs: Temp Pulse Resp BP Pulse Ox 97.9 F 82 18 138/70 H 93 01/18/20 08:01 01/18/20 08:01 01/18/20 08:01 01/18/20 08:01 01/18/20 08:01 Intake & Output 01/17/20 01/18/20 01/19/20 06:59 06:59 06:59 Intake Total 2250 1760 250 Output Total 3 Balance 2247 1760 250 Weight 114.9 kg 115.2 kg General appearance: PRESENT: no acute distress, obese, well-developed, well-nourished Head exam: PRESENT: atraumatic, normocephalic Neck exam: ABSENT: carotid bruit, JVD, lymphadenopathy, thyromegaly Respiratory exam: PRESENT: clear to auscultation koffi. ABSENT: rales, rhonchi, wheezes Pulses: PRESENT: normal dorsalis pedis pul GI/Abdominal exam: PRESENT: normal bowel sounds, soft. ABSENT: distended, guarding, mass, organolmegaly, rebound, tenderness Neurological exam: PRESENT: alert, awake, oriented to person, oriented to place, oriented to time, CN II-XII grossly intact. ABSENT: motor sensory deficit Results Laboratory Results: 01/18/20 03:30 01/17/20 01/17/20 01/17/20 15:15 18:49 21:20 WBC RBC Hgb Hct MCV MCH MCHC RDW Plt Count Sodium 122.5 L 123.2 L 123.0 L Potassium 4.7 4.6 4.4 Chloride 93 L 91 L 94 L Carbon Dioxide 20 L 19 L 19 L Anion Gap 10 13 10 BUN 23 H 26 H 25 H Creatinine 1.06 1.08 1.10 Est GFR ( Amer) > 60 > 60 > 60 Glucose 168 H 350 H 319 H Calcium 7.8 L 7.9 L 7.4 L Urine Color Urine Appearance Urine pH Ur Specific [place] Urine Protein Urine Glucose (UA) Urine Ketones Urine Blood Urine Nitrite Ur Leukocyte Esterase Urine WBC (Auto) Urine RBC (Auto) 01/18/20 01/18/20 01/18/20 03:30 03:30 10:25 WBC 65.2 H* RBC 4.83 Hgb 13.7 Hct 41.1 MCV 85 MCH 28.4 MCHC 33.4 RDW 14.7 H Plt Count 259 Sodium 126.4 L Potassium 4.7 Chloride 95 L Carbon Dioxide 20 L Anion Gap 11 BUN 24 H Creatinine 1.10 Est GFR ( Amer) > 60 Glucose 240 H Calcium 8.0 L Urine Color YELLOW Urine Appearance CLEAR Urine pH 5.0 Ur Specific [place] 1.018 Urine Protein 30 H Urine Glucose (UA) >=500 H Urine Ketones NEGATIVE Urine Blood NEGATIVE Urine Nitrite NEGATIVE Ur Leukocyte Esterase NEGATIVE Urine WBC (Auto) 1 Urine RBC (Auto) 1 01/14/20 22:20 Blood Blood Culture (PCR) - Final 01/14/20 22:20 Blood Blood Culture - Final Micrococcus Species 01/14/20 21:09 Troponin I < 0.012 Impressions: Chest X-Ray 01/14/20 20:50 IMPRESSION: Mild progressive airspace disease left lung base retrocardiac. Assessment and Plan - Diagnosis (1) Hyponatremia Is this a current diagnosis for this admission?: Yes Plan: Improving. Sodium 126. Continue status improving. Likely chronic but acutely dropping. No previous labs available except on 01/06/2020 patient had a sodium level of 129.1. On this admission patient sodium was 128 however it has dropped to 120 today. Continue on 3% normal saline with correction goal of 8 to 10 mEq within 24 hours, with BMP every 4 hours. Monitor vitals. Monitor for seizure activity. Nephrology consulted. Recommendation pending. (2) COVID-19 Is this a current diagnosis for this admission?: Yes Plan: Patient is having fever and becoming mildly hypoxic on RA. Patient recently discharged from [facility] however he was treated for COVID-19. SPO2 WNL on arrival, low-grade fever, does not appear to be in acute distress. Not sure if patient symptoms are due to COVID-19 or he is having superimposed healthcare associated pneumonia. Day 3 IV antibiotics. Day 3 IV vancomycin. Day 3 IV cefepime. Day 3 p.o. Decadron. Day 2 therapeutic dose Lovenox. Continue IV antibiotics, Decadron as well as vitamin C, vitamin D, melatonin and zinc. No need for Remdesivir this point. Will check with family if patient received Remesivir at [facility]. (3) Chronic lymphocytic leukemia (CLL), B-cell Qualifiers: Leukemia Active/Remission status: without remission Qualified Code(s): C91.10 - Chronic lymphocytic leukemia of B-cell type not having achieved remission Is this a current diagnosis for this admission?: Yes Plan: Monitor white blood cell count. Oncology consulted. Recommendations noted. (4) Hypertension Qualifiers: Hypertension type: essential hypertension Qualified Code(s): I10 - Essential (primary) hypertension Is this a current diagnosis for this admission?: Yes Plan: Normotensive. Euvolemic. Cardiac diet, resume home meds, adjust meds as needed. PRN IV hydralazine and metoprolol. Outpatient PCP follow-up. (5) Pneumonia Qualifiers: Pneumonia type: due to unspecified organism Laterality: left Lung locati on: lower lobe of lung Qualified Code(s): J18.9 - Pneumonia, unspecified organism Is this a current diagnosis for this admission?: Yes Plan: Patient was recently admitted at [facility] and was treated for COVID-19, presented with mild hypoxia, altered mental status that fever. Not sure if this is still COVID-19 or patient is having superimposed bacterial pneumonia or healthcare associated pneumonia. Day 3 IV antibiotics Day 3 IV vancomycin Day 3 IV cefepime. Continue empiric IV antibiotics. Follow-up cultures. (6) Diabetes Qualifiers: Diabetes mellitus type: type 2 Is this a current diagnosis for this admission?: Yes Plan: Uncontrolled. Diabetic diet, sliding scale insulin, pre-meal insulin, basal insulin, Accu- Chek, hypoglycemia protocol. Resume home meds upon discharge. Outpatient PCP follow-up. (7) Acute metabolic encephalopathy Is this a current diagnosis for this admission?: Yes Plan: Patient is alert, cooperative with physical examination, does not appear to be in apparent distress, only oriented to self and place and does not follow three- step commands. Not sure if this is sequela COVID-19 infection. As per son patient has some confusion at baseline but is still lives in independent life. Continue treating underlying infectious process, if no improvement will obtain MRI brain to rule out any underlying disease. Continue fall, seizure and aspiration precaution. Supportive measures. - Time Time Spent with patient: 25-34 minutes Anticipated Discharge Disposition: Home with Home Health Anticipated Discharge Timeframe: within 48 hours
[2020-01-18] MEDS: DEXAMETHASONE SOD PHOS INJ 10 MG/1 ML VIAL IV SCH ×3 (13:28→22:29)
[2020-01-18 15:21] LABS: FREE T4 (FREE THYROXINE) 1.14 ng/dL (0.78-2.19)
[2020-01-18 15:35] LABS: THYROID STIMULATING HORMONE 0.49 uIU/mL (0.47-4.68)
[2020-01-18 15:51] LABS: URINE SODIUM 60 mmol/L (30-90)
[2020-01-18 15:53] LABS: ANION GAP 12 (5-19); BLOOD UREA NITROGEN 18 mg/dL (7-20); CALCIUM 7.5 mg/dL (8.4-10.2); CARBON DIOXIDE 18 mmol/L (22-30); CHLORIDE 95 mmol/L (98-107); GLUCOSE 279 mg/dL (75-110); POTASSIUM 4.3 mmol/L (3.6-5.0)
[2020-01-18 16:04] LABS: OSMOLALITY,URINE 682 mOsm/kg (300-900)
[2020-01-18] MEDS ORDERED: INSULIN GLARGINE,HUM.REC.ANLOG 1,000 UNIT/10 ML VIAL (PYX) SUBCUT ONE ×2 (17:45→18:00)
--- NOTE | 2020-01-18 18:22 | PDOC CONSULTATION ---
Consultation Consult Date: 01/18/20 Provider Consulted: GEORGE AMAYA Consult reason:: Hyponatremia History of Present Illness Admission Date/PCP: 01/15/20 03:28 History of Present Illness: FARIDEH OCHOA is a 74 year old gentleman with history of hypertension, diabetes mellitus type 2, CLL, recent COVID-19 infection was positive on 01/06/2020 treated at [facility] and was discharged who presented here at [facility] on 01/15/2020 with weakness, shortness of breath and fever. Patient is being treated for pneumonia and COVID-19 infection. Patient also presented with hyponatremia with sodium of 127.2 on January 13. Yesterday the sodium level went down to 120.7 and was reportedly confused so he was started on 3% normal saline and was given a total of 1 L yesterday. At 3:30 AM this morning the sodium went up to 126.4 and 10:30 AM it was 125.4. He was started again with 3% normal saline. This morning the patient is awake but does not appear to be quite right and could not tell me his complete name initially. He is however oriented x2. He initially said that he was short of breath but then he retracted it. Otherwise he denies any nausea, vomiting, no chest pains. He did not offer any further complaints. Past Medical History Cardiac Medical History: Reports: Hypertension-primary Endocrine Medical History: Reports: Diabetes Mellitus Type 2 Malignancy Medical History: Reports: Leukemia - CLL Past Surgical History Past Surgical History: Reports: Other - prostate bx Social History Information Source: [facility] Records Smoking Status: Never Smoker Electronic Cigarette use?: No Frequency of Alcohol Use: None Hx Recreational Drug Use: No - Advance Directive Resuscitation Status: Full Code Family History Family History: DM, Hypertension Parental Family History Reviewed: Yes Children Family History Reviewed: Yes Sibling(s) Family History Reviewed.: Yes Medication/Allergy Home Medications: Amlodipine Besylate [Norvasc 5 mg Tablet] 5 mg PO DAILY 01/15/20 Canagliflozin [Invokana] 1 tab PO DAILY 01/15/20 Fenofibrate 200mg 200 mg PO DAILY 01/15/20 Insulin NPH Hum/Reg Insulin Hm [Humulin 70/30 Kwikpen] 64 unit SQ BID 01/15/20 Lisinopril [Prinivil] 20 mg PO DAILY 01/15/20 Metformin HCl [Glucophage] 1,000 mg PO BID 01/15/20 Pravastatin Sodium 20 mg PO DAILY 01/15/20 Allergies/Adverse Reactions: No Known Allergies Allergy (Verified 01/06/20 13:47) Review of Systems All systems: reviewed and no additional remarkable complaints except as stated Review of Systems: Constitutional: ABSENT: chills, fatigue, headache(s), weight gain, weight loss; patient admits fever initially Eyes: ABSENT: visual disturbances Ears: ABSENT: hearing changes Cardiovascular: ABSENT: chest pain, dyspnea on exertion, edema, orthropnea, palpitations Respiratory: ABSENT: cough, dyspnea, hemoptysis Gastrointestinal: ABSENT: abdominal pain, constipation, diarrhea, hematemesis, hematochezia, nausea, vomiting Genitourinary: ABSENT: dysuria, hematuria Musculoskeletal: ABSENT: joint swelling Integumentary: ABSENT: rash, wounds Neurological: ABSENT: abnormal gait, abnormal speech, dizziness, focal weakness, numbness, syncope; positive confusion Psychiatric: ABSENT: anxiety, depression Endocrine: ABSENT: cold intolerance, heat intolerance, polydipsia, polyuria Hematologic/Lymphatic: ABSENT: easy bleeding, easy bruising, lymphadenopathy Physical Exam Vital Signs: Temp Pulse Resp BP Pulse Ox 97.9 F 82 18 138/70 H 93 01/18/20 08:01 01/18/20 08:01 01/18/20 08:01 01/18/20 08:01 01/18/20 08:01 Intake & Output 01/17/20 01/18/20 01/19/20 06:59 06:59 06:59 Intake Total 2250 1760 250 Output Total 3 Balance 2247 1760 250 Weight 114.9 kg 115.2 kg Exam: General appearance: No acute distress, cooperative, well-developed, well- nourished Head exam: PRESENT: atraumatic, normocephalic Eye exam: PRESENT: Conjunctiva Angelica, EOMI, PERRLA. ABSENT: conjunctival injection, scleral icterus Mouth exam: PRESENT: moist, neck supple, tongue midline Neck exam: PRESENT: full ROM. ABSENT: carotid bruit, JVD, lymphadenopathy, thyromegaly Respiratory exam: PRESENT: clear to auscultation bilaterally. ABSENT: rales, rhonchi, stridor, wheezes Cardiovascular exam: PRESENT: RRR, +S1, +S2. ABSENT: systolic murmur Pulses: PRESENT: normal radial pulses, normal dorsalis pedis pulses GI/Abdominal exam: PRESENT: normal bowel sounds, soft. ABSENT: guarding, mass, tenderness Rectal exam: Deferred Extremities exam: PRESENT: full ROM. ABSENT: calf tenderness, pedal edema Musculoskeletal: PRESENT: full ROM. ABSENT: deformity Neurological exam: PRESENT: alert, Awake, unable to tell me his complete name, oriented to place, Oriented to time, reflexes normal, CN II-XII grossly intact. ABSENT: motor sensory deficit Psychiatric exam: PRESENT: appropriate affect, normal mood. ABSENT: homicidal ideation, suicidal ideation Skin exam: PRESENT: intact, dry, warm. ABSENT: rash Results Laboratory Results: 01/18/20 03:30 01/17/20 01/17/20 01/17/20 15:15 18:49 21:20 WBC RBC Hgb Hct MCV MCH MCHC RDW Plt Count Sodium 122.5 L 123.2 L 123.0 L Potassium 4.7 4.6 4.4 Chloride 93 L 91 L 94 L Carbon Dioxide 20 L 19 L 19 L Anion Gap 10 13 10 BUN 23 H 26 H 25 H Creatinine 1.06 1.08 1.10 Est GFR ( Amer) > 60 > 60 > 60 Glucose 168 H 350 H 319 H Calcium 7.8 L 7.9 L 7.4 L Urine Color Urine Appearance Urine pH Ur Specific [place] Urine Protein Urine Glucose (UA) Urine Ketones Urine Blood Urine Nitrite Ur Leukocyte Esterase Urine WBC (Auto) Urine RBC (Auto) 01/18/20 01/18/20 01/18/20 03:30 03:30 10:25 WBC 65.2 H* RBC 4.83 Hgb 13.7 Hct 41.1 MCV 85 MCH 28.4 MCHC 33.4 RDW 14.7 H Plt Count 259 Sodium 126.4 L Potassium 4.7 Chloride 95 L Carbon Dioxide 20 L Anion Gap 11 BUN 24 H Creatinine 1.10 Est GFR ( Amer) > 60 Glucose 240 H Calcium 8.0 L Urine Color YELLOW Urine Appearance CLEAR Urine pH 5.0 Ur Specific [place] 1.018 Urine Protein 30 H Urine Glucose (UA) >=500 H Urine Ketones NEGATIVE Urine Blood NEGATIVE Urine Nitrite NEGATIVE Ur Leukocyte Esterase NEGATIVE Urine WBC (Auto) 1 Urine RBC (Auto) 1 01/14/20 22:20 Blood Blood Culture (PCR) - Final 01/14/20 22:20 Blood Blood Culture - Final Micrococcus Species 01/14/20 21:09 Troponin I < 0.012 Impressions: Chest X-Ray 01/14/20 20:50 IMPRESSION: Mild progressive airspace disease left lung base retrocardiac. Assessment & Plan - Diagnosis (1) Hyponatremia Is this a current diagnosis for this admission?: Yes Plan: Euvolemic and hypotonic hyponatremia. Serum osmolality is 268, urine osmolality of 682 with urine sodium of 60. Thyroid functions are normal. Uric acid is 4.1. Cortisol was 34 and elevated but patient is on dexamethasone. 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 Currently with some confusion but has not had any seizures. The patient has gone up 6 mEq for the past 24 hours which is getting to the upper limit of correction to prevent osmotic demyelination syndrome. Discussed with Dr. Mohr and I recommended to discontinue 3% normal saline. If the subsequent repeat sodium level is still low I would try a dose of tolvaptan 15 mg x 1 dose. Continue to monitor sodium level. (2) Pneumonia Qualifiers: Pneumonia type: due to unspecified organism Laterality: left Lung location: lower lobe of lung Qualified Code(s): J18.9 - Pneumonia, unspecified organism Is this a current diagnosis for this admission?: Yes Plan: On antibiotics with cefepime and vancomycin per hospital service. (3) COVID-19 Is this a current diagnosis for this admission?: Yes Plan: Patient on dexamethasone and vitamin C. (4) Metabolic acidosis Is this a current diagnosis for this admission?: Yes Plan: Non-anion gap. Initial VBG on admission showed some degree of alkalemia with decreased PCO2. Although this is venous sample I think the patient's acidosis could be an appropriate compensatory mechanism for primary respiratory alkalosis. Currently there is no obvious reason for a primary metabolic acidos is. (5) Chronic lymphocytic leukemia (CLL), B-cell Qualifiers: Leukemia Active/Remission status: without remission Qualified Code(s): C91.10 - Chronic lymphocytic leukemia of B-cell type not having achieved remission Is this a current diagnosis for this admission?: Yes Plan: Per hematology oncology. (6) Diabetes Qualifiers: Diabetes mellitus type: type 2 Is this a current diagnosis for this admission?: Yes Plan: Suboptimally controlled. Defer to hospitalist. (7) Hypertension Qualifiers: Hypertension type: essential hypertension Qualified Code(s): I10 - Essential (primary) hypertension Is this a current diagnosis for this admission?: Yes Plan: Fairly controlled. - Notes Notes: Thank you very much for this consultation.
[2020-01-18] MEDS ORDERED: TOLVAPTAN 15 MG TABLET PO ONE (19:00)
[2020-01-18 19:51] LABS: ANION GAP 11 (5-19); BLOOD UREA NITROGEN 18 mg/dL (7-20); CALCIUM 7.8 mg/dL (8.4-10.2); CARBON DIOXIDE 21 mmol/L (22-30); CHLORIDE 93 mmol/L (98-107); GLUCOSE 332 mg/dL (75-110); POTASSIUM 4.6 mmol/L (3.6-5.0)
--- NOTE | 2020-01-18 22:06 | RADIOLOGY REPORT (SQ) ---
EXAM DESCRIPTION: XR CHEST 1 VIEW COMPLETED DATE/TME: 01/18/2020 00:00 CLINICAL HISTORY: 74 years, Male, sob. EXAM DESCRIPTION: CLINICAL HISTORY: sob. COMPARISON: . 01/14/2020 FINDINGS: Two views of the chest are submitted. Cardiac silhouette appears enlarged. There are bilateral extensive consolidations, much worse than on the prior exam. Worst involvement is again at the left lung base. There is a small right pleural effusion. Impression: Bilateral significantly worsened consolidations. Cardiomegaly. Pulmonary edema.
[2020-01-18] MEDS: ATORVASTATIN CALCIUM 10 MG TABLET PO SCH (22:28)
[2020-01-18] MEDS: MELATONIN 5 MG TABLET PO SCH (22:28)
[2020-01-18 22:49] LABS: BLOOD UREA NITROGEN 18 mg/dL (7-20); CALCIUM 7.6 mg/dL (8.4-10.2); GLUCOSE 281 mg/dL (75-110)
[2020-01-18 22:50] LABS: ANION GAP 11 (5-19); CARBON DIOXIDE 18 mmol/L (22-30); CHLORIDE 96 mmol/L (98-107); POTASSIUM 4.1 mmol/L (3.6-5.0)
[2020-01-18 22:52] LABS: VENOUS BLOOD BASE EXCESS -1.2 mmol/L; VENOUS BLOOD HCO3 21.3 mmol/L (20-32); VENOUS BLOOD PCO2 30.2 mmHg (35-63); VENOUS BLOOD PH 7.47 (7.30-7.42)
[2020-01-19] MEDS: DEXAMETHASONE SOD PHOS INJ 10 MG/1 ML VIAL IV SCH ×2 (00:37→09:02)
[2020-01-19] MEDS ORDERED: FUROSEMIDE INJ/PF 20 MG/2 ML SDV IV ONE (02:41)
[2020-01-19] MEDS: ACETAMINOPHEN 325 MG TABLET PO PRN ×2 (03:36→16:43)
[2020-01-19] MEDS ORDERED: IBUPROFEN 400 MG TABLET PO ONE (04:30)
[2020-01-19] MEDS: INSULIN GLARGINE,HUM.REC.ANLOG 1,000 UNIT/10 ML VIAL SUBCUT SCH ×2 (06:06→18:32)
[2020-01-19] MEDS: VANCOMYCIN HCL 1,500 MG in DEXTROSE 5%-WATER 250 ML IV SCH (06:06)
[2020-01-19 06:57] LABS: VANCOMYCIN,TROUGH 8.9 ug/mL (5.0-20.0)
[2020-01-19 06:59] LABS: ANION GAP 12 (5-19); BLOOD UREA NITROGEN 18 mg/dL (7-20); CALCIUM 7.9 mg/dL (8.4-10.2); CARBON DIOXIDE 20 mmol/L (22-30); CHLORIDE 97 mmol/L (98-107); GLUCOSE 200 mg/dL (75-110)
[2020-01-19] MEDS ORDERED: INFLUENZA QUAD (6MOS+) 2020-21 VAC 0.5 ML SYR IM ONE (08:00)
[2020-01-19] MEDS: IPRATROPIUM/ALBUTEROL 0.5-2.5 MG/3 ML AMPUL NEB SCH ×3 (08:22→20:17)
[2020-01-19] MEDS: INSULIN LISPRO 100 UNIT/ML 3 ML VIAL SUBCUT SCH ×4 (09:01→21:43)
[2020-01-19] MEDS: ASCORBIC ACID 500 MG TABLET PO SCH ×2 (09:01→17:00)
[2020-01-19] MEDS: AMLODIPINE BESYLATE 5 MG TABLET PO SCH (09:02)
[2020-01-19] MEDS: GUAIFENESIN 600 MG TABLET.SA PO SCH ×2 (09:02→21:23)
[2020-01-19] MEDS: ZINC SULFATE 220 MG CAPSULE PO SCH (09:02)
[2020-01-19] MEDS: ENOXAPARIN SODIUM INJ 120 MG/0.8 ML DISP.SYRIN SUBCUT SCH ×2 (09:02→21:24)
[2020-01-19] MEDS: CHOLECALCIFEROL (D3) 1,000 UNIT (25 MCG) TABLET PO SCH (09:02)
[2020-01-19] MEDS: FENOFIBRATE NANOCRYSTALLIZED 145 MG TABLET PO SCH (09:02)
[2020-01-19] MEDS: LISINOPRIL 10 MG TABLET PO SCH (09:02)
[2020-01-19] MEDS: CEFEPIME HCL 2 GM in DEXTROSE 5%-WATER 50 ML IV SCH ×2 (11:07→21:23)
--- NOTE | 2020-01-19 11:47 | PDOC PROGRESS REPORT ---
Subjective Progress Note for:: 01/19/20 Subjective:: Patient was seen this morning for laying in his bed at the time of examination. He is still requiring oxygen due to his SOB. He denies it being any worse. He received tolvaptan yesterday and produced a significant amount of urine yesterday. According to his nurse karly, he is less confused today. Reason For Visit: COVID 19,PNEUMONIA,CHRONIC LYMPHOCYTIC LEUKEMIA, Physical Exam Vital Signs: Temp Pulse Resp BP Pulse Ox 98.6 F 110 H 18 134/68 H 97 01/19/20 08:00 01/19/20 08:40 01/19/20 08:40 01/19/20 07:21 01/19/20 08:40 Intake & Output 01/18/20 01/19/20 01/20/20 06:59 06:59 06:59 Intake Total 1760 1520 250 Output Total 450 Balance 1760 1070 250 Weight 115.2 kg 115.9 kg General appearance: PRESENT: no acute distress, well-developed, well-nourished Mouth exam: PRESENT: moist, neck supple Neck exam: ABSENT: JVD, tracheal deviation Respiratory exam: PRESENT: crackles, rales. ABSENT: accessory muscle use, clear to auscultation koffi, wheezes Cardiovascular exam: PRESENT: +S1, +S2 GI/Abdominal exam: PRESENT: soft. ABSENT: distended, tenderness Extremities exam: ABSENT: pedal edema, +1 edema, +2 edema Neurological exam: PRESENT: alert, awake, oriented to person, oriented to place, oriented to time, oriented to situation Skin exam: PRESENT: dry, intact, warm Results Laboratory Results: 01/18/20 03:30 01/19/20 06:04 01/18/20 01/18/20 01/18/20 10:25 10:25 10:30 VBG pH VBG pCO2 VBG HCO3 VBG Base Excess Sodium 125.4 L Potassium 4.3 Chloride 92 L Carbon Dioxide 19 L Anion Gap 14 BUN 19 Creatinine 0.98 Est GFR ( Amer) > 60 Est GFR (Non-Af Amer) Glucose 251 H Serum Osmolality Uric Acid Calcium 8.0 L TSH Free T4 Urine Color YELLOW Urine Appearance CLEAR Urine pH 5.0 Ur Specific [place] 1.018 Urine Protein 30 H Urine Glucose (UA) >=500 H Urine Ketones NEGATIVE Urine Blood NEGATIVE Urine Nitrite NEGATIVE Ur Leukocyte Esterase NEGATIVE Urine WBC (Auto) 1 Urine RBC (Auto) 1 Urine Osmolality 682 01/18/20 01/18/20 01/18/20 10:30 10:30 10:30 VBG pH VBG pCO2 VBG HCO3 VBG Base Excess Sodium Potassium Chloride Carbon Dioxide Anion Gap BUN Creatinine Est GFR ( Amer) Est GFR (Non-Af Amer) Glucose Serum Osmolality 268 L Uric Acid 4.1 Calcium TSH 0.49 Free T4 1.14 Urine Color Urine Appearance Urine pH Ur Specific [place] Urine Protein Urine Glucose (UA) Urine Ketones Urine Blood Urine Nitrite Ur Leukocyte Esterase Urine WBC (Auto) Urine RBC (Auto) Urine Osmolality 01/18/20 01/18/20 01/18/20 15:06 18:57 22:07 VBG pH VBG pCO2 VBG HCO3 VBG Base Excess Sodium 125.2 L 125.4 L 124.7 L Potassium 4.3 4.6 4.1 Chloride 95 L 93 L 96 L Carbon Dioxide 18 L 21 L 18 L Anion Gap 12 11 11 BUN 18 18 18 Creatinine 0.92 1.01 0.97 Est GFR ( Amer) > 60 > 60 > 60 Est GFR (Non-Af Amer) Glucose 279 H 332 H 281 H Serum Osmolality Uric Acid Calcium 7.5 L 7.8 L 7.6 L TSH Free T4 Urine Color Urine Appearance Urine pH Ur Specific [place] Urine Protein Urine Glucose (UA) Urine Ketones Urine Blood Urine Nitrite Ur Leukocyte Esterase Urine WBC (Auto) Urine RBC (Auto) Urine Osmolality 01/18/20 01/19/20 01/19/20 22:07 06:04 06:04 VBG pH 7.47 H VBG pCO2 30.2 L VBG HCO3 21.3 VBG Base Excess -1.2 Sodium 129.0 L Potassium 4.0 Chloride 97 L Carbon Dioxide 20 L Anion Gap 12 BUN 18 Creatinine Cancelled 0.94 Est GFR ( Amer) Cancelled > 60 Est GFR (Non-Af Amer) Cancelled Glucose 200 H Serum Osmolality Uric Acid Calcium 7.9 L TSH Free T4 Urine Color Urine Appearance Urine pH Ur Specific [place] Urine Protein Urine Glucose (UA) Urine Ketones Urine Blood Urine Nitrite Ur Leukocyte Esterase Urine WBC (Auto) Urine RBC (Auto) Urine Osmolality 01/14/20 01/19/20 21:09 06:04 Troponin I < 0.012 NT-Pro-B Natriuret Pep 815 H Assessment & Plan - Diagnosis (1) Hyponatremia Is this a current diagnosis for this admission?: Yes Plan: Looks to be related to his current infection and SIADH. Will give one more dose of tolvaptan today and then likely stop it tomorrow depending on how his sodium reacts. (2) COVID-19 Is this a current diagnosis for this admission?: Yes Plan: currently treating his covid pneumonia with azithromycin and cefepime (3) Pneumonia Qualifiers: Pneumonia type: due to unspecified organism Laterality: left Lung location: lower lobe of lung Qualified Code(s): J18.9 - Pneumonia, unspecified organism Is this a current diagnosis for this admission?: Yes Plan: currently treating his covid pneumonia with azithromycin and cefepime (4) Fever Plan: currently treating his covid pneumonia with azithromycin and cefepime (5) Chronic lymphocytic leukemia (CLL), B-cell Qualifiers: Leukemia Active/Remission status: without remission Qualified Code(s): C91.10 - Chronic lymphocytic leukemia of B-cell type not having achieved remission Is this a current diagnosis for this admission?: Yes Plan: followed by heme-onc (6) Hypertension Qualifiers: Hypertension type: essential hypertension Qualified Code(s): I10 - Essential (primary) hypertension Is this a current diagnosis for this admission?: Yes Plan: controlled at the time (7) Diabetes Qualifiers: Diabetes mellitus type: type 2 Is this a current diagnosis for this admission?: Yes
--- NOTE | 2020-01-19 13:23 | PDOC PROGRESS REPORT ---
Subjective Progress Note for:: 01/19/20 Subjective:: The patient is extremely hard of hearing and he does not have his hearing aids. Much of the information is from his most recent admission to [facility] FARIDEH OCHOA is a 74 year old male who was recently discharged from [facility] after being transferred from [facility]. He tested positive for COVID January 05. He presents with increasing sickness including shortness of breath and fever. On exam his white blood cell count is elevated but this is due to the leukemia. His sodium is low at 127. Glucose is high at 301. Chest x-ray reveals a left lower lobe infiltrate. The patient will be admitted for treatment of pneumonia. He was just in [facility] and so it is difficult to know if this is still COVID or a separate healthcare-acquired pneumonia. We will therefore use broad-spectrum antibiotic therapy. 01/16/2020. No acute events overnight. Patient comfortable stable no apparent distress, alert and oriented x2 however patient does not follow three-step command, and gets confused easily, denies any fever, chills, nausea, vomiting, diarrhea, constipation or any urinary symptoms. SPO2 WNL on RA. Does not seem to be in any acute distress. 01/17/2020. No acute events overnight. Patient has been having fever otherwise in no apparent distress, mild hypoxia SPO2 low 90s on room air, patient is alert very pleasant and in no apparent distress, unfortunately only oriented to self and place, does not follow three-step commands, tends to get out of bed, denies any chest pain, nausea, vomiting, diarrhea, constipation or any urinary symptoms. 02/18/2020. No acute events overnight. Patient mental status improved, patient was sitting in his recliner no apparent distress, alert and appears sharper than yesterday however oriented x2 and fails to follow three-step command, denies any fever, chills, nausea, vomiting, diarrhea, constipation or any urinary symptoms. 01/19/2020. Overnight patient has been febrile at as per primary nurse very impulsive and trying to get out of the bed, he was also noted to be hypoxic and was placed on oxygen. This morning patient is resting in bed no apparent distress, alert and oriented x3, slow to follow two-step commands, inquiring when he can go home. Denies any chest pain, shortness of breath, nausea, vomiting, diarrhea, constipation. Patient has history of BPH and complaining of urgency, bladder scan and patient was noted to be retaining urine. Updated family about his prognosis, as per and [id number] patient has not not ed to have any history of confusion or impulsiveness, recently was hospitalized at [facility] and did receive remdesivir however he did not receive effervescent plasma, family and patient has consented for receiving effervescent plasma. Reason For Visit: COVID 19,PNEUMONIA,CHRONIC LYMPHOCYTIC LEUKEMIA, Physical Exam Vital Signs: Temp Pulse Resp BP Pulse Ox 97.7 F 110 H 22 H 110/74 95 01/19/20 11:44 01/19/20 11:44 01/19/20 11:44 01/19/20 11:44 01/19/20 11:44 Intake & Output 01/18/20 01/19/20 01/20/20 06:59 06:59 06:59 Intake Total 1760 1520 250 Output Total 450 Balance 1760 1070 250 Weight 115.2 kg 115.9 kg General appearance: PRESENT: no acute distress, obese, well-developed, well- nourished Head exam: PRESENT: atraumatic, normocephalic Respiratory exam: PRESENT: clear to auscultation koffi. ABSENT: rales, rhonchi, wheezes Cardiovascular exam: PRESENT: RRR. ABSENT: diastolic murmur, rubs, systolic murmur GI/Abdominal exam: PRESENT: normal bowel sounds, soft. ABSENT: distended, guarding, mass, organolmegaly, rebound, tenderness Extremities exam: PRESENT: full ROM. ABSENT: calf tenderness, clubbing, pedal edema Neurological exam: PRESENT: alert, awake, oriented to person, oriented to place, oriented to time, CN II-XII grossly intact. ABSENT: motor sensory deficit Results Laboratory Results: 01/18/20 03:30 01/19/20 06:04 01/18/20 01/18/20 01/18/20 10:25 10:30 10:30 VBG pH VBG pCO2 VBG HCO3 VBG Base Excess Sodium Potassium Chloride Carbon Dioxide Anion Gap BUN Creatinine Est GFR ( Amer) Est GFR (Non-Af Amer) Glucose Serum Osmolality 268 L Uric Acid 4.1 Calcium TSH Free T4 Urine Osmolality 682 01/18/20 01/18/20 01/18/20 10:30 15:06 18:57 VBG pH VBG pCO2 VBG HCO3 VBG Base Excess Sodium 125.2 L 125.4 L Potassium 4.3 4.6 Chloride 95 L 93 L Carbon Dioxide 18 L 21 L Anion Gap 12 11 BUN 18 18 Creatinine 0.92 1.01 Est GFR ( Amer) > 60 > 60 Est GFR (Non-Af Amer) Glucose 279 H 332 H Serum Osmolality Uric Acid Calcium 7.5 L 7.8 L TSH 0.49 Free T4 1.14 Urine Osmolality 01/18/20 01/18/20 01/19/20 22:07 22:07 06:04 VBG pH 7.47 H VBG pCO2 30.2 L VBG HCO3 21.3 VBG Base Excess -1.2 Sodium 124.7 L Potassium 4.1 Chloride 96 L Carbon Dioxide 18 L Anion Gap 11 BUN 18 Creatinine 0.97 Cancelled Est GFR ( Amer) > 60 Cancelled Est GFR (Non-Af Amer) Cancelled Glucose 281 H Serum Osmolality Uric Acid Calcium 7.6 L TSH Free T4 Urine Osmolality 01/19/20 06:04 VBG pH VBG pCO2 VBG HCO3 VBG Base Excess Sodium 129.0 L Potassium 4.0 Chloride 97 L Carbon Dioxide 20 L Anion Gap 12 BUN 18 Creatinine 0.94 Est GFR ( Amer) > 60 Est GFR (Non-Af Amer) Glucose 200 H Serum Osmolality Uric Acid Calcium 7.9 L TSH Free T4 Urine Osmolality 01/14/20 01/19/20 21:09 06:04 Troponin I < 0.012 NT-Pro-B Natriuret Pep 815 H Assessment and Plan - Diagnosis (1) Hyponatremia Is this a current diagnosis for this admission?: Yes Plan: Improving. Sodium 129. Mental status improving. Likely SIADH as per nephrology evaluation. No previous labs available except on 01/06/2020 patient had a sodium level of 129.1. On this admission patient sodium was 128 however it has dropped to 120 following day. Was a started on 3% normal saline with with no significant improvement. Switched to tolvaptan as per nephrology recommendation with moderate improvement. Monitor vitals. Monitor for seizure activity. BP every 6 hours. Nephrology consulted. Recommendations noted. (2) COVID-19 Is this a current diagnosis for this admission?: Yes Plan: Patient is having fever and becoming mildly hypoxic on RA. Patient recently discharged from [facility] however he was treated for COVID-19. SPO2 WNL on arrival, low-grade fever, does not appear to be in acute distress. Not sure if patient symptoms are due to COVID-19 or he is having superimposed healthcare associated pneumonia. Day 4 IV antibiotics. Day 4 IV cefepime. Day 4 p.o. Decadron. Day 3 therapeutic dose Lovenox. Received 3 days of IV vancomycin. Has received IV remdesivir in his previous hospitalization at [facility]. Patient and family have consented for effervescent plasma. Effervescent plasma ordered. Continue IV antibiotics, Decadron as well as vitamin C, vitamin D, melatonin and zinc. (3) Chronic lymphocytic leukemia (CLL), B-cell Qualifiers: Leukemia Active/Remission status: without remission Qualified Code(s): C91.10 - Chronic lymphocytic leukemia of B-cell type not having achieved remission Is this a current diagnosis for this admission?: Yes Plan: Monitor white blood cell count. Oncology consulted. Recommendations noted. (4) Hypertension Qualifiers: Hypertension type: essential hypertension Qualified Code(s): I10 - Essential (primary) hypertension Is this a current diagnosis for this admission?: Yes Plan: Normotensive. Euvolemic. Cardiac diet, resume home meds, adjust meds as needed. PRN IV hydralazine and metoprolol. Outpatient PCP follow-up. (5) Pneumonia Qualifiers: Pneumonia type: due to unspecified organism Laterality: left Lung location: lower lobe of lung Qualified Code(s): J18.9 - Pneumonia, unspecified organism Is this a current diagnosis for this admission?: Yes Plan: Patient was recently admitted at [facility] and was treated for COVID-19, presented with mild hypoxia, altered mental status that fever. Not sure if this is still COVID-19 or patient is having superimposed bacterial pneumonia or healthcare associated pneumonia. Day 4 IV antibiotics. Day 4 IV cefepime. Received 3 days of IV vancomycin. Continue empiric IV antibiotics. Cultures negative so far. (6) Diabetes Qualifiers: Diabetes mellitus type: type 2 Is this a current diagnosis for this admission?: Yes Plan: Uncontrolled. Diabetic diet, sliding scale insulin, pre-meal insulin, basal insulin, Accu- Chek, hypoglycemia protocol. Resume home meds upon discharge. Outpatient PCP follow-up. (7) Acute metabolic encephalopathy Is this a current diagnosis for this admission?: Yes Plan: Alert and oriented x3. Can follow two-step command. Not sure if this is sequela COVID-19 infection. As per son patient has some confusion at baseline but is still lives in independent life. Continue treating underlying infectious process, if no improvement will obtain MRI brain to rule out any underlying disease. We will obtain a head CT. Continue fall, seizure and aspiration precaution. Supportive measures. (8) BPH (benign prostatic hyperplasia) Qualifiers: Lower urinary tract symptom presence: symptoms present Is this a current diagnosis for this admission?: Yes Plan: Complaining of urgency. Urinary retention observed on bladder scan. We will start on tamsulosin, monitor symptoms, consider starting on Vesicare if no indicated. Outpatient PCP and urology follow-up. - Time Time Spent with patient: 25-34 minutes Medications reviewed and adjusted accordingly: Yes Anticipated Discharge Disposition: Home with Home Health Anticipated Discharge Timeframe: within 48 hours
[2020-01-19] MEDS: METOPROLOL TARTRATE 25 MG TABLET PO SCH ×2 (13:47→21:23)
[2020-01-19] MEDS ORDERED: VANCOMYCIN HCL 1,250 MG in DEXTROSE 5%-WATER 250 ML IV SCH (14:00)
--- NOTE | 2020-01-19 14:18 | RADIOLOGY REPORT (SQ) ---
EXAM DESCRIPTION: CT HEAD WITHOUT IMAGES COMPLETED DATE/TIME: 01/19/2020 2:04 pm REASON FOR STUDY: AMS COMPARISON: None. TECHNIQUE: Axial images acquired through the brain without intravenous contrast. Images reviewed wi th bone, brain and subdural windows. Additional sagittal and coronal reconstructions were generated. Images stored on PACS. All CT scanners at this facility use dose modulation, iterative reconstruction, and/or weight based d osing when appropriate to reduce radiation dose to as low as reasonably achievable (ALARA). [facility]: Dose Right [facility]: CareDose [facility]: Dose Right [facility]: Teradose 4D [facility]: TakeCharge RADIATION DOSE: CT Rad equipment meets quality standard of care and radiation dose reduction techniq ues were employed. CTDIvol: 48.7 mGy. DLP: 1005 mGy-cm. mGy. LIMITATIONS: None. FINDINGS: VENTRICLES: Prominent ventricles secondary to involutional atrophy. CEREBRUM: No masses. No hemorrhage. No midline shift. No evidence for acute infarction. Normal gra y/white matter differentiation. No areas of low density in the white matter. CEREBELLUM: No masses. No hemorrhage. No alteration of density. No evidence for acute infarction. EXTRAAXIAL SPACES: No fluid collections. No masses. ORBITS AND GLOBE: No intra- or extraconal masses. Normal contour of globe without masses. CALVARIUM: No fracture. PARANASAL SINUSES: No fluid or mucosal thickening. SOFT TISSUES: No mass or hematoma. OTHER: No other significant finding. IMPRESSION: Involutional changes with no acute intracranial imaging findings. EVIDENCE OF ACUTE STROKE: NO. COMMENT: Quality ID # [id number]: Final reports with documentation of one or more dose reduction techniques (e.g., Automated exposure control, adjustment of the mA and/or kV according to patient size, use of iterative reconstruction technique) TECHNICAL DOCUMENTATION: JOB ID: [id number] [email or web address]- All Rights Reserved Reading location - IP/workstation name: [email or web address]
[2020-01-19] MEDS: AZITHROMYCIN 500 MG in DEXTROSE 5%-WATER 250 ML IV SCH (14:53)
[2020-01-19 16:27] LABS: ANION GAP 13 (5-19); BLOOD UREA NITROGEN 19 mg/dL (7-20); CALCIUM 8.2 mg/dL (8.4-10.2); CARBON DIOXIDE 23 mmol/L (22-30); CHLORIDE 94 mmol/L (98-107); GLUCOSE 250 mg/dL (75-110); POTASSIUM 4.4 mmol/L (3.6-5.0)
[2020-01-19] MEDS: TAMSULOSIN HCL 0.4 MG CAP.SR.24H PO SCH (17:00)
--- NOTE | 2020-01-19 19:53 | EKG REPORT ---
SEVERITY:- NORMAL ECG - SINUS RHYTHM : Confirmed by: Gifty Asif 19-Jan-2020 19:53:11
[2020-01-19] MEDS ORDERED: TOLVAPTAN 15 MG TABLET PO ONE (20:00)
[2020-01-19] MEDS: MELATONIN 5 MG TABLET PO SCH (21:23)
[2020-01-19] MEDS: ATORVASTATIN CALCIUM 10 MG TABLET PO SCH (21:23)
[2020-01-19 23:30] LABS: ANION GAP 9 (5-19); BLOOD UREA NITROGEN 21 mg/dL (7-20); CARBON DIOXIDE 25 mmol/L (22-30); CHLORIDE 95 mmol/L (98-107); GLUCOSE 273 mg/dL (75-110); POTASSIUM 4.1 mmol/L (3.6-5.0)
[2020-01-20 05:36] LABS: HEMATOCRIT 42.7 % (37.9-51.0); HEMOGLOBIN 14.6 g/dL (13.5-17.0); MEAN CORPUSCULAR HEMOGLOBIN 28.9 pg (27.0-33.4); MEAN CORPUSCULAR HGB CONC 34.1 g/dL (32.0-36.0); MEAN CORPUSCULAR VOLUME 85 fl (80-97); PLATELET COUNT 242 10^3/uL (150-450); RED BLOOD COUNT 5.03 10^6/uL (4.35-5.55); RED CELL DISTRIBUTION WIDTH 15.4 % (11.5-14.0)
[2020-01-20 05:45] LABS: ANION GAP 11 (5-19); BLOOD UREA NITROGEN 21 mg/dL (7-20); CALCIUM 8.5 mg/dL (8.4-10.2); CARBON DIOXIDE 25 mmol/L (22-30); CHLORIDE 95 mmol/L (98-107); GLUCOSE 211 mg/dL (75-110); POTASSIUM 4.2 mmol/L (3.6-5.0)
[2020-01-20] MEDS: INSULIN GLARGINE,HUM.REC.ANLOG 1,000 UNIT/10 ML VIAL SUBCUT SCH ×2 (05:57→16:59)
[2020-01-20 06:33] LABS: WHITE BLOOD COUNT 50.3 10^3/uL (4.0-10.5)
[2020-01-20] MEDS: IPRATROPIUM/ALBUTEROL 0.5-2.5 MG/3 ML AMPUL NEB SCH ×3 (08:23→20:12)
[2020-01-20 09:08] LABS: APPEARANCE,URINE CLEAR; BILIRUBIN,URINE NEGATIVE (NEGATIVE); COLOR,URINE YELLOW; GLUCOSE, URINE NEGATIVE (NEGATIVE); KETONES,URINE NEGATIVE (NEGATIVE); LEUKOCYTE ESTERASE,URINE NEGATIVE (NEGATIVE); NITRITE,URINE NEGATIVE (NEGATIVE); PROTEIN,URINE NEGATIVE (NEGATIVE); UROBILINOGEN,URINE NEGATIVE mg/dL (<2.0)
[2020-01-20] MEDS: ASCORBIC ACID 500 MG TABLET PO SCH ×2 (09:57→17:00)
[2020-01-20] MEDS: METOPROLOL TARTRATE 25 MG TABLET PO SCH ×2 (09:57→22:04)
[2020-01-20] MEDS: FENOFIBRATE NANOCRYSTALLIZED 145 MG TABLET PO SCH (09:57)
[2020-01-20] MEDS: ENOXAPARIN SODIUM INJ 120 MG/0.8 ML DISP.SYRIN SUBCUT SCH ×2 (09:58→22:05)
[2020-01-20] MEDS: DEXAMETHASONE SOD PHOS INJ 10 MG/1 ML VIAL IV SCH (09:58)
[2020-01-20] MEDS: GUAIFENESIN 600 MG TABLET.SA PO SCH ×2 (09:58→22:04)
[2020-01-20] MEDS: ZINC SULFATE 220 MG CAPSULE PO SCH (09:58)
[2020-01-20] MEDS: AMLODIPINE BESYLATE 5 MG TABLET PO SCH (09:58)
[2020-01-20] MEDS: LISINOPRIL 10 MG TABLET PO SCH (09:58)
[2020-01-20] MEDS: CHOLECALCIFEROL (D3) 1,000 UNIT (25 MCG) TABLET PO SCH (09:58)
[2020-01-20] MEDS: AZITHROMYCIN 500 MG in DEXTROSE 5%-WATER 250 ML IV SCH (09:59)
[2020-01-20] MEDS: INSULIN LISPRO 100 UNIT/ML 3 ML VIAL SUBCUT SCH ×4 (11:30→22:05)
[2020-01-20] MEDS: CEFEPIME HCL 2 GM in DEXTROSE 5%-WATER 50 ML IV SCH ×2 (11:48→22:04)
--- NOTE | 2020-01-20 12:26 | PDOC PROGRESS REPORT ---
Subjective Progress Note for:: 01/20/20 Subjective:: Patient was seen sitting up in his bed at the time of examination. He unfortunately is slightly altered this morning. According the staff up on his grant, he has been forgetting everything fairly rapidly. At this point he is at his limit for water in a day due to forgetting he drank the water. Looks to have good urine output and sodium is trending up. Reason For Visit: COVID 19,PNEUMONIA,CHRONIC LYMPHOCYTIC LEUKEMIA, Physical Exam Vital Signs: Temp Pulse Resp BP Pulse Ox 97.6 F 70 17 130/71 H 96 01/20/20 11:34 01/20/20 11:34 01/20/20 11:34 01/20/20 11:34 01/20/20 11:34 Intake & Output 01/19/20 01/20/20 01/21/20 06:59 06:59 06:59 Intake Total 1520 1800 250 Output Total 450 600 Balance 1070 1200 250 Weight 115.9 kg 112.3 kg General appearance: PRESENT: no acute distress, well-developed, well-nourished Mouth exam: PRESENT: moist, neck supple Neck exam: ABSENT: tracheal deviation Respiratory exam: PRESENT: crackles. ABSENT: accessory muscle use, clear to auscultation koffi Cardiovascular exam: PRESENT: +S1, +S2 GI/Abdominal exam: PRESENT: soft. ABSENT: distended, tenderness Extremities exam: ABSENT: pedal edema, +1 edema, +2 edema Musculoskeletal exam: PRESENT: normal inspection. ABSENT: tenderness Neurological exam: PRESENT: altered, awake, oriented to place. ABSENT: alert, oriented to person, oriented to time, oriented to situation Skin exam: PRESENT: dry, intact, warm Results Laboratory Results: 01/20/20 04:33 01/20/20 04:33 01/19/20 01/19/20 01/19/20 06:04 15:18 22:55 WBC RBC Hgb Hct MCV MCH MCHC RDW Plt Count Sodium 129.6 L 128.5 L Potassium 4.4 4.1 Chloride 94 L 95 L Carbon Dioxide 23 25 Anion Gap 13 9 BUN 19 21 H Creatinine 1.05 1.09 Est GFR ( Amer) > 60 > 60 Glucose 250 H 273 H Calcium 8.2 L 8.0 L Magnesium Albumin 2.7 L Urine Color Urine Appearance Urine pH Ur Specific [place] Urine Protein Urine Glucose (UA) Urine Ketones Urine Blood Urine Nitrite Ur Leukocyte Esterase Urine WBC (Auto) Urine RBC (Auto) 01/20/20 01/20/20 01/20/20 04:33 04:33 07:47 WBC 50.3 H* RBC 5.03 Hgb 14.6 Hct 42.7 MCV 85 MCH 28.9 MCHC 34.1 RDW 15.4 H Plt Count 242 Sodium 131.4 L Potassium 4.2 Chloride 95 L Carbon Dioxide 25 Anion Gap 11 BUN 21 H Creatinine 1.01 Est GFR ( Amer) > 60 Glucose 211 H Calcium 8.5 Magnesium 2.7 H Albumin Urine Color YELLOW Urine Appearance CLEAR Urine pH 5.0 Ur Specific [place] 1.010 Urine Protein NEGATIVE Urine Glucose (UA) NEGATIVE Urine Ketones NEGATIVE Urine Blood NEGATIVE Urine Nitrite NEGATIVE Ur Leukocyte Esterase NEGATIVE Urine WBC (Auto) 1 Urine RBC (Auto) 1 01/14/20 22:49 Blood Blood Culture - Final NO GROWTH IN 5 DAYS 01/14/20 01/19/20 21:09 06:04 Troponin I < 0.012 NT-Pro-B Natriuret Pep 815 H Impressions: Head CT 01/19/20 00:00 IMPRESSION: Involutional changes with no acute intracranial imaging findings. EVIDENCE OF ACUTE STROKE: NO. Assessment & Plan - Diagnosis (1) Hyponatremia Is this a current diagnosis for this admission?: Yes Plan: currently improving at this time, advised on fluid restriction with the patient. Unfortunately with his mental status I do not know that it will help much. (2) COVID-19 Is this a current diagnosis for this admission?: Yes Plan: currently treating his covid pneumonia with azithromycin and cefepime (3) Pneumonia Qualifiers: Pneumonia type: due to unspecified organism Laterality: left Lung locat ion: lower lobe of lung Qualified Code(s): J18.9 - Pneumonia, unspecified organism Is this a current diagnosis for this admission?: Yes Plan: currently treating his covid pneumonia with azithromycin and cefepime (4) Fever Plan: currently treating his covid pneumonia with azithromycin and cefepime (5) Chronic lymphocytic leukemia (CLL), B-cell Qualifiers: Leukemia Active/Remission status: without remission Qualified Code(s): C91.10 - Chronic lymphocytic leukemia of B-cell type not having achieved remission Is this a current diagnosis for this admission?: Yes Plan: followed by heme-onc (6) Hypertension Qualifiers: Hypertension type: essential hypertension Qualified Code(s): I10 - Essential (primary) hypertension Is this a current diagnosis for this admission?: Yes Plan: controlled at the time (7) Diabetes Qualifiers: Diabetes mellitus type: type 2 Is this a current diagnosis for this admission?: Yes
[2020-01-20 14:44] LABS: VANCOMYCIN,TROUGH < 5.0 ug/mL (5.0-20.0)
--- NOTE | 2020-01-20 16:09 | PDOC PROGRESS REPORT ---
Subjective Progress Note for:: 01/20/20 Subjective:: No adverse events overnight. Oxygenation stable on 3 L nasal cannula. He said he normally uses 2 L at home. He burst out crying when I introduced myself because I apparently remind him of a family member that in a plane crash not too long ago. He is upset that he is not allowed to drink more water. I tried to explain to him the importance of fluid restriction in treatment of his hyponatremia. Reason For Visit: COVID 19,PNEUMONIA,CHRONIC LYMPHOCYTIC LEUKEMIA, Physical Exam Vital Signs: Temp Pulse Resp BP Pulse Ox 97.6 F 71 17 130/71 H 96 01/20/20 11:34 01/20/20 14:00 01/20/20 11:34 01/20/20 11:34 01/20/20 11:34 Intake & Output 01/19/20 01/20/20 01/21/20 06:59 06:59 06:59 Intake Total 1520 1800 250 Output Total 450 600 Balance 1070 1200 250 Weight 115.9 kg 112.3 kg General appearance: PRESENT: no acute distress, obese, well-developed, well- nourished Head exam: PRESENT: atraumatic, normocephalic Respiratory exam: PRESENT: clear to auscultation koffi. ABSENT: rales, rhonchi, wheezes Cardiovascular exam: PRESENT: RRR. ABSENT: diastolic murmur, rubs, systolic murmur GI/Abdominal exam: PRESENT: normal bowel sounds, soft. ABSENT: distended, guarding, mass, organolmegaly, rebound, tenderness Extremities exam: PRESENT: full ROM. ABSENT: calf tenderness, clubbing, pedal edema Neurological exam: PRESENT: alert, awake, oriented to person, oriented to place, oriented to time, CN II-XII grossly intact. ABSENT: motor sensory deficit Results Laboratory Results: 01/20/20 04:33 01/20/20 13:20 01/19/20 01/19/20 01/20/20 15:18 22:55 04:33 WBC RBC Hgb Hct MCV MCH MCHC RDW Plt Count Sodium 129.6 L 128.5 L 131.4 L Potassium 4.4 4.1 4.2 Chloride 94 L 95 L 95 L Carbon Dioxide 23 25 25 Anion Gap 13 9 11 BUN 19 21 H 21 H Creatinine 1.05 1.09 1.01 Est GFR ( Amer) > 60 > 60 > 60 Glucose 250 H 273 H 211 H Calcium 8.2 L 8.0 L 8.5 Magnesium 2.7 H Urine Color Urine Appearance Urine pH Ur Specific [place] Urine Protein Urine Glucose (UA) Urine Ketones Urine Blood Urine Nitrite Ur Leukocyte Esterase Urine WBC (Auto) Urine RBC (Auto) 01/20/20 01/20/20 01/20/20 04:33 07:47 13:20 WBC 50.3 H* RBC 5.03 Hgb 14.6 Hct 42.7 MCV 85 MCH 28.9 MCHC 34.1 RDW 15.4 H Plt Count 242 Sodium Potassium Chloride Carbon Dioxide Anion Gap BUN Creatinine 0.87 Est GFR ( Amer) > 60 Glucose Calcium Magnesium Urine Color YELLOW Urine Appearance CLEAR Urine pH 5.0 Ur Specific [place] 1.010 Urine Protein NEGATIVE Urine Glucose (UA) NEGATIVE Urine Ketones NEGATIVE Urine Blood NEGATIVE Urine Nitrite NEGATIVE Ur Leukocyte Esterase NEGATIVE Urine WBC (Auto) 1 Urine RBC (Auto) 1 01/14/20 22:49 Blood Blood Culture - Final NO GROWTH IN 5 DAYS 01/14/20 01/19/20 21:09 06:04 Troponin I < 0.012 NT-Pro-B Natriuret Pep 815 H Impressions: Head CT 01/19/20 00:00 IMPRESSION: Involutional changes with no acute intracranial imaging findings. EVIDENCE OF ACUTE STROKE: NO. Assessment and Plan - Diagnosis (1) Hyponatremia Is this a current diagnosis for this admission?: Yes (2) Chronic lymphocytic leukemia (CLL), B-cell Qualifiers: Leukemia Active/Remission status: without remission Qualified Code(s): C91.10 - Chronic lymphocytic leukemia of B-cell type not having achieved remission Is this a current diagnosis for this admission?: Yes (3) Chronic respiratory failure with hypoxia Is this a current diagnosis for this admission?: Yes (4) BPH (benign prostatic hyperplasia) Qualifiers: Lower urinary tract symptom presence: symptoms present Is this a current diagnosis for this admission?: Yes (5) COVID-19 Is this a current diagnosis for this admission?: Yes (6) Diabetes Qualifiers: Diabetes mellitus type: type 2 Diabetes mellitus fpc insulin use: un specified fpc insulin use status Diabetes mellitus complication status: with other specified complication Qualified Code(s): E11.69 - Type 2 diabetes mellitus with other specified complication Is this a current diagnosis for this admission?: Yes (7) Hypertension Qualifiers: Hypertension type: essential hypertension Qualified Code(s): I10 - Essential (primary) hypertension Is this a current diagnosis for this admission?: Yes - Plan Summary Summary: His COVID-19 has resolved and he completed treatment at [facility] before he was sent back here. His oxygen requirement is within his typical range. He is being followed by nephrology for his hyponatremia. He is on a fluid restriction, which he does not like, and he has to be watched constantly to make sure he does not try to sneak more fluids. Nephrology is holding his tolvaptan today because he has had an improvement in his sodium. - Time Time Spent with patient: 15-24 minutes Anticipated Discharge Disposition: Home with Home Health Anticipated Discharge Timeframe: within 72 hours
[2020-01-20] MEDS: VANCOMYCIN HCL 1,500 MG in DEXTROSE 5%-WATER 250 ML IV SCH (16:39)
[2020-01-20] MEDS: TAMSULOSIN HCL 0.4 MG CAP.SR.24H PO SCH (16:59)
[2020-01-20] MEDS: MELATONIN 5 MG TABLET PO SCH (22:04)
[2020-01-20] MEDS: ATORVASTATIN CALCIUM 10 MG TABLET PO SCH (22:04)
[2020-01-21] MEDS: INSULIN GLARGINE,HUM.REC.ANLOG 1,000 UNIT/10 ML VIAL SUBCUT SCH (05:34)
[2020-01-21 06:02] LABS: ANION GAP 10 (5-19); BLOOD UREA NITROGEN 26 mg/dL (7-20); CALCIUM 8.3 mg/dL (8.4-10.2); CARBON DIOXIDE 25 mmol/L (22-30); CHLORIDE 96 mmol/L (98-107); GLUCOSE 236 mg/dL (75-110); POTASSIUM 4.5 mmol/L (3.6-5.0)
[2020-01-21] MEDS: VANCOMYCIN HCL 1,500 MG in DEXTROSE 5%-WATER 250 ML IV SCH (06:30)
[2020-01-21] MEDS: IPRATROPIUM/ALBUTEROL 0.5-2.5 MG/3 ML AMPUL NEB SCH ×2 (07:54→14:29)
[2020-01-21] MEDS: INSULIN LISPRO 100 UNIT/ML 3 ML VIAL SUBCUT SCH ×2 (08:35→11:49)
[2020-01-21] MEDS: ASCORBIC ACID 500 MG TABLET PO SCH (09:48)
[2020-01-21] MEDS: ZINC SULFATE 220 MG CAPSULE PO SCH (09:48)
[2020-01-21] MEDS: AMLODIPINE BESYLATE 5 MG TABLET PO SCH (09:48)
[2020-01-21] MEDS: LISINOPRIL 10 MG TABLET PO SCH (09:48)
[2020-01-21] MEDS: GUAIFENESIN 600 MG TABLET.SA PO SCH (09:49)
[2020-01-21] MEDS: FENOFIBRATE NANOCRYSTALLIZED 145 MG TABLET PO SCH (09:49)
[2020-01-21] MEDS: METOPROLOL TARTRATE 25 MG TABLET PO SCH (09:49)
[2020-01-21] MEDS: CHOLECALCIFEROL (D3) 1,000 UNIT (25 MCG) TABLET PO SCH (09:49)
[2020-01-21] MEDS: DEXAMETHASONE SOD PHOS INJ 10 MG/1 ML VIAL IV SCH (09:49)
[2020-01-21] MEDS: ENOXAPARIN SODIUM INJ 120 MG/0.8 ML DISP.SYRIN SUBCUT SCH (09:50)
[2020-01-21] MEDS: CEFEPIME HCL 2 GM in DEXTROSE 5%-WATER 50 ML IV SCH (09:53)
[2020-01-21] MEDS: AZITHROMYCIN 500 MG in DEXTROSE 5%-WATER 250 ML IV SCH (09:55)
[2020-01-21] MEDS ORDERED: VANCOMYCIN HCL 1,250 MG in DEXTROSE 5%-WATER 250 ML IV SCH (14:00)
[2020-01-21 16:14] VITALS: BP 130/69
--- NOTE | 2020-01-21 16:30 | PDOC DISCHARGE SUMMARY ---
Impression - Admit/DC Date/PCP Admission Date/Primary Care Provider: 01/15/20 03:28 Discharge Date: 01/21/20 - Discharge Diagnosis (1) Hyponatremia Is this a current diagnosis for this admission?: Yes (2) Chronic lymphocytic leukemia (CLL), B-cell Is this a current diagnosis for this admission?: Yes (3) Chronic respiratory failure with hypoxia Is this a current diagnosis for this admission?: Yes (4) BPH (benign prostatic hyperplasia) Is this a current diagnosis for this admission?: Yes (5) COVID-19 Is this a current diagnosis for this admission?: Yes (6) Diabetes Is this a current diagnosis for this admission?: Yes (7) Hypertension Is this a current diagnosis for this admission?: Yes - Assessment Summary: His COVID-19 has resolved and he [facility] before he was sent back here. His oxygen requirement is within his typical range. He is being followed by nephrology for his hyponatremia. He is on a fluid restriction, which he does not like, and he has to be watched constantly to make sure he does not try to sneak more fluids. Nephrology is holding his tolvaptan today because he has had an improvement in his sodium. - Additional Information Resuscitation Status: Full Code Discharge Diet: Cardiac, Other (Comments) Discharge Activity: Activity As Tolerated, Slowly Increase Activity Referrals: Out of Town,Patient [Other] (Patient will make follow-up appointment upon return to home.) Prescriptions: Metoprolol Tartrate [Lopressor 25 mg Tablet] 12.5 mg PO Q12 #60 tablet Home Medications: Amlodipine Besylate [Norvasc 5 mg Tablet] 5 mg PO DAILY 01/15/20 Canagliflozin [Invokana] 1 tab PO DAILY 01/15/20 Fenofibrate 200mg 200 mg PO DAILY 01/15/20 Insulin NPH Hum/Reg Insulin Hm [Humulin 70/30 Kwikpen] 64 unit SQ BID 01/15/20 Lisinopril [Prinivil] 20 mg PO DAILY 01/15/20 Metformin HCl [Glucophage] 1,000 mg PO BID 01/15/20 Pravastatin Sodium 20 mg PO DAILY 01/15/20 Metoprolol Tartrate [Lopressor 25 mg Tablet] 12.5 mg PO Q12 #60 tablet 01/21/20 History of Present Illiness History of Present Illness: FARIDEH OCHOA is a 74 year old male who was recently discharged from [facility] after [facility]. He tested positive for COVID January 05. He presents with increasing sickness including shortness of breath and fever. On exam his white blood cell count is elevated but this is due to the leukemia. His sodium is low at 127. Glucose is high at 301. Chest x-ray reveals a left lower lobe infiltrate. The patient will be admitted for treatment of pneumonia. He was just in [facility] and so it is difficult to know if this is still COVID or a separate healthcare-acquired pneumonia. We will therefore use broad-spectrum antibiotic therapy. Hospital Course Hospital Course: He completed treatment for COVID-19 before he came home from [facility], so I strongly doubt that this was a recurrence of COVID. More likely he had either residual consolidation or he had a superimposed bacterial pneumonia. He is received sufficient treatment for a bacterial pneumonia. 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 He was drinking a lot of water and was not happy whenever we cut down how much water he was able to get per day. He was also given a few doses of tolvaptan. His sodium began to trend up and he was taken off of tolvaptan. It was recommended that he not drink more than 1800 to 2000 mL/day. He was also initially hypoxic and was able to get onto room air by time of discharge. He has follow-up with his primary care to arrange when he returns home to [place], because he staying here with family. His labs and examination were reassuring and he was discharged in stable condition. Physical Exam Vital Signs: Temp Pulse Resp BP Pulse Ox 97.5 F 62 18 130/69 H 94 01/21/20 15:29 01/21/20 15:35 01/21/20 15:35 01/21/20 15:35 01/21/20 15:35 Intake & Output 01/20/20 01/21/20 01/22/20 06:59 06:59 06:59 Intake Total 1800 1610 1057 Output Total 600 220 Balance 1200 1390 1057 Weight 112.3 kg General appearance: PRESENT: no acute distress, obese, well-developed, well- nourished Head exam: PRESENT: atraumatic, normocephalic Respiratory exam: PRESENT: clear to auscultation koffi. ABSENT: rales, rhonchi, wheezes Cardiovascular exam: PRESENT: RRR. ABSENT: diastolic murmur, rubs, systolic murmur GI/Abdominal exam: PRESENT: normal bowel sounds, soft. ABSENT: distended, guarding, mass, organolmegaly, rebound, tenderness Extremities exam: PRESENT: full ROM. ABSENT: calf tenderness, clubbing, pedal edema Neurological exam: PRESENT: alert, awake, oriented to person, oriented to place, oriented to time, CN II-XII grossly intact. ABSENT: motor sensory deficit Results Laboratory Results: WBC 50.3 10^3/uL (4.0-10.5) H* 01/20/20 04:33 RBC 5.03 10^6/uL (4.35-5.55) 01/20/20 04:33 Hgb 14.6 g/dL (13.5-17.0) 01/20/20 04:33 Hct 42.7 % (37.9-51.0) 01/20/20 04:33 MCV 85 fl (80-97) 01/20/20 04:33 MCH 28.9 pg (27.0-33.4) 01/20/20 04:33 MCHC 34.1 g/dL (32.0-36.0) 01/20/20 04:33 RDW 15.4 % (11.5-14.0) H 01/20/20 04:33 Plt Count 242 10^3/uL (150-450) 01/20/20 04:33 Lymph % (Auto) Not Reportable 01/17/20 10:00 [place] % (Auto) Not Reportable 01/17/20 10:00 Eos % (Auto) Not Reportable 01/17/20 10:00 Baso % (Auto) Not Reportable 01/17/20 10:00 Absolute Neuts (auto) Not Reportable 01/17/20 10:00 Absolute Lymphs (auto) Not Reportable 01/17/20 10:00 Absolute Monos (auto) Not Reportable 01/17/20 10:00 Absolute Eos (auto) Not Reportable 01/17/20 10:00 Absolute Basos (auto) Not Reportable 01/17/20 10:00 Total Counted 100 01/17/20 10:00 Seg Neutrophils % Not Reportable 01/17/20 10:00 Seg Neuts % (Manual) 12 % (42-78) L 01/17/20 10:00 Band Neutrophils % 1 % (3-5) L 01/17/20 10:00 Lymphocytes % (Manual) 83 % (13-45) H 01/17/20 10:00 Atypical Lymphs % 5 % (0) 01/14/20 21:09 Monocytes % (Manual) 1 % (3-13) L 01/17/20 10:00 Eosinophils % (Manual) 0 % (0-6) 01/17/20 10:00 Basophils % (Manual) 0 % (0-2) 01/17/20 10:00 Immature Leukocytes % 3 % (0) H 01/17/20 10:00 Abs Neuts (Manual) 8.4 10^3/uL (1.7-8.2) H 01/17/20 10:00 Abs Lymphs (Manual) 53.7 10^3/uL (0.5-4.7) H 01/17/20 10:00 Abs Monocytes (Manual) 0.6 10^3/uL (0.1-1.4) 01/17/20 10:00 Absolute Eos (Manual) 0.0 10^3/uL (0.0-0.6) 01/17/20 10:00 Abs Basophils (Manual) 0.0 10^3/uL (0.0-0.2) 01/17/20 10:00 Smudge Cells PRESENT 01/14/20 21:09 Toxic Granulation SLIGHT 01/14/20 21:09 Platelet Comment ADEQUATE 01/17/20 10:00 Polychromasia SLIGHT 01/16/20 06:10 Anisocytosis SLIGHT 01/17/20 10:00 PT 13.9 SEC (11.4-15.4) 01/15/20 15:11 INR 1.05 01/15/20 15:11 D-Dimer 0.48 ug/mL (0.00-0.50) 01/15/20 15:11 VBG pH 7.47 (7.30-7.42) H 01/18/20 22:07 VBG pCO2 30.2 mmHg (35-63) L 01/18/20 22:07 VBG HCO3 21.3 mmol/L (20-32) 01/18/20 22:07 VBG Base Excess -1.2 mmol/L 01/18/20 22:07 Sodium 131.3 mmol/L (137-145) L 01/21/20 04:51 Potassium 4.5 mmol/L (3.6-5.0) 01/21/20 04:51 Chloride 96 mmol/L (98-107) L 01/21/20 04:51 Carbon Dioxide 25 mmol/L (22-30) 01/21/20 04:51 Anion Gap 10 (5-19) 01/21/20 04:51 BUN 26 mg/dL (7-20) H 01/21/20 04:51 Creatinine 0.85 mg/dL (0.52-1.25) 01/21/20 04:51 Est GFR ( Amer) > 60 (>60) 01/21/20 04:51 Est GFR (Non-Af Amer) Cancelled 01/19/20 06:04 Est GFR (MDRD) Non-Af > 60 (>60) 01/21/20 04:51 Glucose 236 mg/dL (75-110) H 01/21/20 04:51 POC Glucose 283 mg/dL (70-110) H 01/21/20 15:36 Serum Osmolality 268 mOsm/kg (275-301) L 01/18/20 10:30 Lactic Acid 1.8 mmol/L (0.7-2.1) 01/15/20 06:55 Uric Acid 4.1 mg/dL (3.5-8.5) 01/18/20 10:30 Calcium 8.3 mg/dL (8.4-10.2) L 01/21/20 04:51 Magnesium 2.7 mg/dL (1.6-2.3) H 01/20/20 04:33 Ferritin 350.00 ng/mL (17.9-464.0) 01/15/20 15:11 Total Bilirubin 1.0 mg/dL (0.2-1.3) 01/17/20 10:00 Direct Bilirubin 0.3 mg/dL (0.0-0.4) 01/17/20 10:00 Neonat Total Bilirubin Not Reportable 01/17/20 10:00 Neonat Direct Bilirubin Not Reportable 01/17/20 10:00 Neonat Indirect Bili Not Reportable 01/17/20 10:00 AST 27 U/L (17-59) 01/17/20 10:00 ALT 20 U/L (<50) 01/17/20 10:00 Alkaline Phosphatase 39 U/L (38-126) 01/17/20 10:00 Troponin I < 0.012 ng/mL 01/14/20 21:09 C-Reactive Protein 228.2 mg/L (<10.0) H 01/15/20 15:11 NT-Pro-B Natriuret Pep 815 pg/mL (<125) H 01/19/20 06:04 Total Protein 6.0 g/dL (6.3-8.2) L 01/17/20 10:00 Albumin 2.7 g/dL (3.5-5.0) L 01/19/20 06:04 EGFR Cancelled 01/19/20 06:04 TSH 0.49 uIU/mL (0.47-4.68) 01/18/20 10:30 Free T4 1.14 ng/dL (0.78-2.19) 01/18/20 10:30 Cortisol AM Sample 34.10 ug/dL (4.46-22.7) H 01/18/20 10:30 Urine Color YELLOW 01/20/20 07:47 Urine Appearance CLEAR 01/20/20 07:47 Urine pH 5.0 (5.0-9.0) 01/20/20 07:47 Ur Specific [place] 1.010 01/20/20 07:47 Urine Protein NEGATIVE mg/dL (NEGATIVE) 01/20/20 07:47 Urine Glucose (UA) NEGATIVE mg/dL (NEGATIVE) 01/20/20 07:47 Urine Ketones NEGATIVE mg/dL (NEGATIVE) 01/20/20 07:47 Urine Blood NEGATIVE (NEGATIVE) 01/20/20 07:47 Urine Nitrite NEGATIVE (NEGATIVE) 01/20/20 07:47 Urine Nitrite (Reflex) NEGATIVE (NEGATIVE) 01/15/20 11:55 Urine Bilirubin NEGATIVE (NEGATIVE) 01/20/20 07:47 Urine Urobilinogen NEGATIVE mg/dL (<2.0) 01/20/20 07:47 Ur Leukocyte Esterase NEGATIVE (NEGATIVE) 01/20/20 07:47 Leukocyte Esterase Rfl NEGATIVE (NEGATIVE) 01/15/20 11:55 Urine WBC (Auto) 1 /HPF 01/20/20 07:47 Urine RBC (Auto) 1 /HPF 01/20/20 07:47 Urine WBC (Reflex) < 1 /HPF 01/15/20 11:55 Urine Mucus (Auto) RARE /LPF 01/20/20 07:47 Urine Osmolality 682 mOsm/kg (300-900) 01/18/20 10:25 Urine Sodium 60 mmol/L (30-90) 01/18/20 10:25 Urine Ascorbic Acid 20 (NEGATIVE) H 01/20/20 07:47 Time Trough Drawn 1320 01/20/20 13:20 Vancomycin Trough < 5.0 ug/mL (5.0-20.0) L 01/20/20 13:20 Slides for Path Review PATHOLOGIST REVIEWED 01/14/20 21:09 01/14/20 01/19/20 21:09 06:04 Troponin I < 0.012 NT-Pro-B Natriuret Pep 815 H Impressions: Chest X-Ray 01/14/20 20:50 IMPRESSION: Mild progressive airspace disease left lung base retrocardiac. Head CT 01/19/20 00:00 IMPRESSION: Involutional changes with no acute intracranial imaging findings. EVIDENCE OF ACUTE STROKE: NO. Plan Time Spent: Greater than 30 Minutes Stroke Is this a Stroke Patient?: No Acute Heart Failure Is this a Heart Failure Patient?: No
--- NOTE | 2020-01-21 19:31 | PDOC PROGRESS REPORT ---
Subjective Progress Note for:: 01/21/20 Subjective:: Patient looks much better than when I saw him 3 days ago. He also admits feeling better. His mental status is normal and improved compared to previous. He is ready to go home. Reason For Visit: COVID 19,PNEUMONIA,CHRONIC LYMPHOCYTIC LEUKEMIA, Physical Exam Vital Signs: Temp Pulse Resp BP Pulse Ox 98.2 F 57 L 20 125/64 98 01/21/20 08:00 01/21/20 08:00 01/21/20 08:00 01/21/20 08:00 01/21/20 08:00 Intake & Output 01/20/20 01/21/20 01/22/20 06:59 06:59 06:59 Intake Total 1800 1610 Output Total 600 220 Balance 1200 1390 Weight 112.3 kg Exam: General appearance: PRESENT: no acute distress, cooperative, well-developed, well-nourished Head exam: PRESENT: atraumatic, normocephalic Eye exam: PRESENT: conjunctiva pink, PERRLA. ABSENT: scleral icterus Neck exam: ABSENT: JVD Respiratory exam: PRESENT: Normal breath sounds. ABSENT: crackles, rales, rhonchi, unlabored, wheezes Cardiovascular exam: PRESENT: Regular rate rhythm -+S1, +S2. ABSENT: diastolic murmur, systolic murmur GI/Abdominal exam: PRESENT: normal bowel sounds, soft. ABSENT: guarding, mass, tenderness Extremities exam: ABSENT: No edema Neurological exam: PRESENT: alert, awake, oriented to person, place and time. Skin exam: PRESENT: dry, warm, Cardiovascular exam: PRESENT: +S1, +S2 GI/Abdominal exam: PRESENT: soft. ABSENT: distended, tenderness Results Laboratory Results: 01/20/20 04:33 01/21/20 04:51 01/20/20 01/21/20 13:20 04:51 Sodium 131.3 L Potassium 4.5 Chloride 96 L Carbon Dioxide 25 Anion Gap 10 BUN 26 H Creatinine 0.87 0.85 Est GFR ( Amer) > 60 > 60 Glucose 236 H Calcium 8.3 L 01/14/20 01/19/20 21:09 06:04 Troponin I < 0.012 NT-Pro-B Natriuret Pep 815 H Impressions: Head CT 01/19/20 00:00 IMPRESSION: Involutional changes with no acute intracranial imaging findings. EVIDENCE OF ACUTE STROKE: NO. Assessment & Plan - Diagnosis (1) Hyponatremia Is this a current diagnosis for this admission?: Yes Plan: Euvolemic and hypotonic hyponatremia. Serum osmolality is 268, urine osmolality of 682 with urine sodium of 60. Thyroid functions are normal. Uric acid is 4.1. Cortisol was 34 and elevated but patient is on dexamethasone. 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 Patient received a dose of tolvaptan. Sodium level has currently improved, stable and acceptable. Advised patient today to continue free water restriction to just 32 ounces a day that includes water, coffee and tea. If he feels like he needs to drink told him to drink electrolyte containing fluids. From nephrology standpoint I think the patient is safe to go home. (2) Pneumonia Qualifiers: Pneumonia type: due to unspecified organism Laterality: left Lung lo cation: lower lobe of lung Qualified Code(s): J18.9 - Pneumonia, unspecified organism Is this a current diagnosis for this admission?: Yes (3) COVID-19 Is this a current diagnosis for this admission?: Yes (4) Metabolic acidosis Is this a current diagnosis for this admission?: Yes Plan: Resolved. (5) Chronic lymphocytic leukemia (CLL), B-cell Qualifiers: Leukemia Active/Remission status: without remission Qualified Code(s): C91.10 - Chronic lymphocytic leukemia of B-cell type not having achieved remission Is this a current diagnosis for this admission?: Yes Plan: Per hematology oncology. (6) Diabetes Qualifiers: Diabetes mellitus type: type 2 Diabetes mellitus press tender long goods insulin use: unspecified press tender long goods insulin use status Diabetes mellitus complication status: with other specified complication Qualified Code(s): E11.69 - Type 2 diabetes mellitus with other specified complication Is this a current diagnosis for this admission?: Yes Plan: Suboptimally controlled. Defer to hospitalist. (7) Hypertension Qualifiers: Hypertension type: essential hypertension Qualified Code(s): I10 - Essential (primary) hypertension Is this a current diagnosis for this admission?: Yes Plan: Fairly controlled. - Time Time with patient: Less than 15 minutes
== END 2020-01-21 17:07 | disposition home health service (06) | DRG 193 ==
LOC: ER 19:44 → EH 01-15 03:28 → 3N 01-15 04:51
PROVIDERS: ADMIT Hospitalist; ATTEND Family Medicine
DX: J15.9 Unspecified bacterial pneumonia (principal); G93.41 Metabolic encephalopathy; C91.10 Chronic lymphocytic leukemia of B-cell type not having achieved remission; J96.11 Chronic respiratory failure with hypoxia; E22.2 Syndrome of inappropriate secretion of antidiuretic hormone; E87.2 Acidosis; E11.65 Type 2 diabetes mellitus with hyperglycemia; I10 Essential (primary) hypertension; N40.1 Benign prostatic hyperplasia with lower urinary tract symptoms; R33.8 Other retention of urine; R39.15 Urgency of urination; Z99.81 Dependence on supplemental oxygen
CPT/HCPCS: 36415; 70450; 71045; 80048; 80053; 80202; 81001; 82040; 82533; 82565; 82728; 82803; 82962; 83605; 83735; 83880; 83930; 83935; 84300; 84439; 84443; 84484; 84550; 85025; 85027; 85379; 85610; 86140; 87040; 87077; 87150; 93005; 93010; 94667; 94799; 96365; 96366; 96367; 99285; J0610; J0456; J0692; J1100; J1650; J1815; J1940; J3370; J3490; J7060